=== PATIENT | male | born 1940 | race Two or more races ===

== ENCOUNTER 2017-10-05 19:36 | Inpatient (IN) | payer MEDICARE, OTHER ==
--- NOTE | 2017-10-05 20:46 | PDOC ---
History of Present Illness - General History Source: Patient Exam Limitations: No Limitations - History of Present Illness Initial Comments: 10/05/17 21:30 The patient is a 77 year old male, with a significant past medical history of HTN, Inguinal Hernia who presents to the emergency department with testicular pain. Patient is accompanied by son who reports sharp, R testicular pain, 10/10 in severity, which is exacerbated upon touch and positional changes. Patient is a visitor from and reports URI illness (cough, fever, nasal congestion) and heavy lifting with luggage. Patient denies chest pain, headache or dizziness. Patient denies fever, chills, abdominal pain, nausea, vomit, diarrhea or constipation. Patient denies dysuria , frequency, urgency or hematuria. Patient denies sick contacts or recent travel. Allergies: NKA Past surgical history:Colonoscopy <Shelli Cramer - Last Filed: 10/06/17 00:10> <Ghazal Ramirez - Last Filed: 10/06/17 06:29> - General Chief Complaint: Pain, Acute Stated Complaint: PAIN Time Seen by Provider: 10/05/17 20:15 Past History <Shelli Cramer - Last Filed: 10/06/17 00:10> - Past Medical History COPD: No HTN: Yes - Suicide/Smoking/Psychosocial Hx Smoking History: Never smoked Information on smoking cessation initiated: No <Ghazal Ramirez - Last Filed: 10/06/17 06:29> - Past Medical History Allergies/Adverse Reactions: Allergies Allergy/AdvReac Type Severity Reaction Status Date / Time No Known Allergies Allergy Verified 10/05/17 19:44 Home Medications: Ambulatory Orders Amox-Tr/K Cl [Augmentin - 875Mg Tablet] 1 tab PO BID 10/05/17 Ibuprofen 800 mg PO TID PRN 10/05/17 Tamsulosin HCl [Flomax] 0.4 mg PO DAILY 10/05/17 Review of Systems - Review of Systems Able to Perform ROS?: Yes Comments:: 10/05/17 21:30 GENERAL/CONSTITUTIONAL: No fever or chills. No weakness. HEAD, EYES, EARS, NOSE AND THROAT: No change in vision. No ear pain or discharge. No sore throat. CARDIOVASCULAR: No chest pain or shortness of breath. RESPIRATORY: No cough, wheezing, or hemoptysis. GASTROINTESTINAL: No nausea, vomiting, diarrhea or constipation. GENITOURINARY: No dysuria, frequency, or change in urination. MUSCULOSKELETAL: No joint or muscle swelling or pain. No neck or back pain. SKIN: No rash NEUROLOGIC: No headache, vertigo, loss of consciousness, or change in strength/ sensation. ENDOCRINE: No increased thirst. No abnormal weight change. HEMATOLOGIC/LYMPHATIC: No anemia, easy bleeding, or history of blood clots. ALLERGIC/IMMUNOLOGIC: No hives or skin allergy. : + R scrotal pain. <Shelli Cramer - Last Filed: 10/06/17 00:10> *Physical Exam - Vital Signs Last Vital Signs Temp Pulse Resp BP Pulse Ox 98 F 94 H 22 120/66 96 10/05/17 19:43 10/05/17 19:43 10/05/17 19:43 10/05/17 19:43 10/05/17 19:43 - Physical Exam Comments: 10/05/17 21:30 GENERAL: Awake, alert, and fully oriented, in no acute distress HEAD: No signs of trauma EYES: PERRLA, EOMI, sclera anicteric, conjunctiva clear ENT: Auricles normal inspection, hearing grossly normal, nares patent, oropharynx clear without exudates. Moist mucosa NECK: Normal ROM, supple, no lymphadenopathy, JVD, or masses LUNGS: Breath sounds equal, clear to auscultation bilaterally. No wheezes, and no crackles HEART: Regular rate and rhythm, normal S1 and S2, no murmurs, rubs or gallops ABDOMEN: +R flank pain. Soft, nontender, normoactive bowel sounds. No guarding , no rebound. No masses EXTREMITIES: Normal range of motion, no edema. No clubbing or cyanosis. No cords, erythema, or tenderness NEUROLOGICAL: Cranial nerves II through XII grossly intact. Normal speech, normal gait SKIN: Warm, Dry, normal turgor, no rashes or lesions noted. : +Swollen R scrotum and extremely tender. <Shelli Cramer - Last Filed: 10/06/17 00:10> - Vital Signs Last Vital Signs Temp Pulse Resp BP Pulse Ox 98 F 94 H 22 120/66 96 10/05/17 19:43 10/05/17 19:43 10/05/17 19:43 10/05/17 19:43 10/05/17 19:43 <RamirezGhazal - Last Filed: 10/06/17 06:29> ED Treatment Course - LABORATORY CBC & Chemistry Diagram: 10/05/17 21:45 10/05/17 21:45 <Shelli Cramer - Last Filed: 10/06/17 00:10> - LABORATORY CBC & Chemistry Diagram: 10/05/17 21:45 10/05/17 21:45 <Ghazal Ramirez - Last Filed: 10/06/17 06:29> Medical Decision Making - Medical Decision Making 10/06/17 00:10 EXAM: CT ABDOMEN AND PELVIS without contrast HISTORY: Rule out right hydronephrosis/stones COMPARISON: None. FINDINGS: Negative for right or left urinary tract stone or obstruction. Note made of a 5.8 cm left renal cyst. No bowel obstruction, free air, or free fluid. There is sigmoid diverticulosis. No diverticulitis or colitis. Normal appendix. No acute abnormalities of the liver, gallbladder, spleen, pancreas, or adrenal glands. Enlarged prostate. Bilateral L5 spondylolyses. <Shelli Cramer - Last Filed: 10/06/17 00:10> - Medical Decision Making 10/05/17 22:15 Patient Name: OLIVIA NOLEN THIS IS A PRELIMINARY REPORT FROM [facility] DATE OF SERVICE: 2017-10-05 20:51:11 IMAGES: 64 EXAM: US SCROTUM with color Doppler HISTORY: Right testicular pain. COMPARISON: None. Bilateral hydrocele, larger on the right. Testes are normal size with homogeneous echogenicity. No testicular mass seen. Increased color flow involving the enlarged right epididymis suggestive of acute epididymitis. No evidence of left acute epididymitis. Normal color to both testes without evidence of torsion. No increased color flow to the right testis to suggest orchitis. THIS DOCUMENT HAS BEEN ELECTRONICALLY SIGNED 10/05/17 22:23 Pt will be treated for STD; we are awaiting CT scan to r/o stone of the kidney vs pyelonephritis. CXR pending also. Pt returned from 2 weeks ago and he is complaining of cough; we will also get a flu culture. 10/05/17 23:[address] the CT scanner; pending. His BuN and Cr are elevated. WHen he returns we will give him IVF. 10/06/17 06:29 Pt admitted to the hospitalist <Ghazal Ramirez - Last Filed: 10/06/17 06:29> *DC/Admit/Observation/Transfer - Attestations Scribe Attestion: 10/05/17 21:30 Documentation prepared by Shelli Cramer, acting as resident medical officer for Ghazal Ramirez MD/DO. <Shelli Cramer - Last Filed: 10/06/17 00:10> - Discharge Dispostion Admit: Yes <Ghazal Ramirez - Last Filed: 10/06/17 06:29> Diagnosis at time of Disposition: Epididymitis, Pyelonephritis, Sepsis, UTI (urinary tract infection) - Discharge Dispostion Condition at time of disposition: Guarded
[2017-10-05] MEDS ORDERED: ONDANSETRON 4 MG/2 ML VIAL IVPB ONE (21:42)
[2017-10-05] MEDS ORDERED: morphine CARPU-JECT 2 MG/1 ML DISP.SYRIN IVPUSH ONE (21:42)
[2017-10-05] MEDS ORDERED: ONDANSETRON 4 MG/2 ML VIAL ONE (22:00)
[2017-10-05] MEDS ORDERED: morphine SULFATE 4 MG/ML VIAL ONE (22:00)
[2017-10-05 22:02] LABS: HEMATOCRIT 41.2 % (35.4-49); MEAN CELL VOLUME 94.2 fl (80-96); MEAN PLT VOLUME 8.7 fl (7.5-11.1); PLATELET COUNT 277 K/MM3 (134-434); RBC 4.38 M/mm3 (4.00-5.60); RDW 13.3 % (11.9-15.9); WHITE BLOOD COUNT 25.9 K/mm3 (4.0-10.0)
[2017-10-05 22:04] LABS: URINE APPEARANCE CLOUDY; URINE BILIRUBIN NEGATIVE (NEGATIVE); URINE BLOOD 3+ (NEGATIVE); URINE COLOR YELLOW; URINE GLUCOSE (UA) NEGATIVE (NEGATIVE); URINE KETONE TRACE (NEGATIVE); URINE NITRITE NEGATIVE (NEGATIVE); URINE UROBILINOGEN NEGATIVE mg/dL (0.2-1.0)
[2017-10-05 22:09] LABS: URINE PROTEIN 1+ (NEGATIVE)
[2017-10-05 22:11] LABS: EPI CELLS RARE /HPF (FEW); URINE BACTERIA MODERATE /hpf (NONE SEEN); URINE MUCUS RARE
[2017-10-05 22:14] LABS: INR 1.04 (0.82-1.09); PROTHROMBIN TIME (PATIENT) 11.8 SEC (9.98-11.88)
[2017-10-05] MEDS ORDERED: DOXYCYCLINE INJECTION 100 MG in DEXTROSE 5%-WATER - 150 ML IVPB ONE (22:16)
[2017-10-05 22:24] LABS: ALBUMIN 3.3 g/dl (3.4-5.0); ALK PHOS 100 U/L (45-117); ANION GAP 7 (8-16); BILIRUBIN,TOTAL 0.5 mg/dL (0.2-1.0); BLOOD UREA NITROGEN 18 mg/dL (7-18); CALCIUM 8.4 mg/dL (8.5-10.1); CHLORIDE 100 mmol/L (98-107); CO2 25 mmol/L (21-32); CREATININE 1.7 mg/dL (0.7-1.3); GLUCOSE,RANDOM 104 mg/dL (74-106); POTASSIUM 4.4 mmol/L (3.5-5.1); SGOT/AST 17 U/L (15-37); SGPT/ALT 19 U/L (12-78); SODIUM 132 mmol/L (136-145); TOT PROT 7.5 g/dl (6.4-8.2)
[2017-10-05 22:40] LABS: PLATELET ESTIMATE ADEQUATE
[2017-10-05] MEDS ORDERED: LIDOCAINE HCL/PF 1% SDV 5ML VIAL ONE (22:58)
[2017-10-05] MEDS ORDERED: DOXYCYCLINE HYCLATE 100 MG VIAL ONE (22:59)
[2017-10-05] MEDS ORDERED: cefTRIAXone SODIUM 1 GM VIAL ONE (22:59)
[2017-10-05] MEDS ORDERED: SODIUM CHLORIDE 0.9% 500 ML INFUS.BAG IV ONE (23:10)
--- NOTE | 2017-10-06 00:01 | HP ---
CHIEF COMPLAINT: Right Testicular Pain PCP: Unknown HISTORY OF PRESENT ILLNESS: 77 year old M with a pmh of HTN, BPH, Right inguinal hernia presenting with right testicular pain x 3 days. Patient states he had gradual onset of pain in his right testicle that worsened over the past 3 days and is now a 10/10. Pain is sharp, nonradiating, and constant. Patient endorses fevers, chills, URI sx ( nonproductive cough, rhinorrhea), dysuria, hematuria, right flank pain. Patient denies chest pain, shortness of breath, abdominal pain, urinary urgency/ frequency, or penile discharge. Patient is sexually active and recently got . He does not use protection. Patient also recently had a colonoscopy, and had 18 polyps removed, none of which were cancerous. Patient recently arrived from 2 weeks ago ER course was notable for: (1) VS- HR 94, WBC 25.9, Cr 1.7 (2) UA- 3+ blood, 555 wbc, 90 RBC, moderate bacteria (3) Scrotum us, CT abd/pelvis, CXR, and GC/chlamydia Recent Travel: 2 weeks ago PAST MEDICAL HISTORY: as per hpi PAST SURGICAL HISTORY: denies Social History: Smoking: denies Alcohol: denies Drugs: denies Family History: Allergies No Known Allergies Allergy (Verified 10/05/17 19:44) HOME MEDICATIONS: Home Medications Medication Instructions Recorded Amox-Tr/K Cl [Augmentin - 875Mg 1 tab PO BID 10/05/17 Tablet] Ibuprofen 800 mg PO TID PRN 10/05/17 Tamsulosin HCl [Flomax] 0.4 mg PO DAILY 10/05/17 REVIEW OF SYSTEMS CONSTITUTIONAL: Absent: fever, chills, diaphoresis, generalized weakness, malaise, loss of appetite, weight change HEENT: Absent: rhinorrhea, nasal congestion, throat pain, throat swelling, difficulty swallowing, mouth swelling, ear pain, eye pain, visual changes CARDIOVASCULAR: Absent: chest pain, syncope, palpitations, irregular heart rate, lightheadedness , peripheral edema RESPIRATORY: Absent: cough, shortness of breath, dyspnea with exertion, orthopnea, wheezing, stridor, hemoptysis GASTROINTESTINAL: Absent: abdominal pain, abdominal distension, nausea, vomiting, diarrhea, constipation, melena, hematochezia GENITOURINARY: Absent: dysuria, frequency, urgency, hesitancy, hematuria, flank pain, genital pain MUSCULOSKELETAL: Absent: myalgia, arthralgia, joint swelling, back pain, neck pain SKIN: Absent: rash, itching, pallor HEMATOLOGIC/IMMUNOLOGIC: Absent: easy bleeding, easy bruising, lymphadenopathy, frequent infections ENDOCRINE: Absent: unexplained weight gain, unexplained weight loss, heat intolerance, cold intolerance NEUROLOGIC: Absent: headache, focal weakness or paresthesias, dizziness, unsteady gait, seizure, mental status changes, bladder or bowel incontinence PSYCHIATRIC: Absent: anxiety, depression, suicidal or homicidal ideation, hallucinations. PHYSICAL EXAMINATION Vital Signs - 24 hr 10/05/17 19:43 Temperature 98 F Pulse Rate 94 H Respiratory 22 Rate Blood Pressure 120/66 O2 Sat by Pulse 96 Oximetry (%) GENERAL: Awake, alert, and fully oriented, in no acute distress. HEAD: Normal with no signs of trauma. EYES: Pupils equal, round and reactive to light, extraocular movements intact, sclera anicteric, conjunctiva clear. No lid lag. EARS, NOSE, THROAT: Oropharynx clear without exudates. Dry mucous membranes. NECK: Normal range of motion, supple without lymphadenopathy, JVD, or masses. LUNGS: Breath sounds equal, clear to auscultation bilaterally. No wheezes, and no crackles. No accessory muscle use. HEART: Tachycardic, normal S1 and S2 without murmur, rub or gallop. ABDOMEN: Soft, nontender, not distended, normoactive bowel sounds, no guarding, no rebound, no masses. No hepatomegaly or splenomegaly. MUSCULOSKELETAL: Normal range of motion at all joints. No bony deformities or tenderness. + mild right CVA tenderness. UPPER EXTREMITIES: 2+ pulses, warm, well-perfused. No cyanosis. No clubbing. No peripheral edema. LOWER EXTREMITIES: 2+ pulses, warm, well-perfused. No calf tenderness. No peripheral edema. NEUROLOGICAL: Cranial nerves II-XII intact. Normal speech. PSYCHIATRIC: Cooperative. Good eye contact. Appropriate mood and affect. SKIN: Warm, dry, normal turgor, no rashes or lesions noted, normal capillary refill. : Erythematous, enlarged right testicle, No improvement in pain upon raising, +tenderness to palpation, No lymphadenopathy, No lesions, No discharge, +Right inguinal hernia Laboratory Results - last 24 hr 10/05/17 10/05/17 10/05/17 21:45 21:45 21:45 WBC 25.9 H RBC 4.38 Hgb 14.0 Hct 41.2 MCV 94.2 MCH 32.0 MCHC 34.0 RDW 13.3 Plt Count 277 MPV 8.7 Total Counted 100 Neutrophils % No Result Required. Neutrophils % (Manual) 80.0 Band Neutrophils % 1.0 Lymphocytes % No Result Required. Lymphocytes % (Manual) 5.0 L Monocytes % (Manual) 13 H Eosinophils % (Manual) 1.0 Differential Comment Man diff performed Platelet Estimate Adequate Platelet Comment PT with INR 11.80 INR 1.04 Sodium Potassium Chloride Carbon Dioxide Anion Gap BUN Creatinine Creat Clearance w eGFR Random Glucose Calcium Total Bilirubin AST ALT Alkaline Phosphatase Total Protein Albumin Urine Color Yellow Urine Appearance Cloudy Urine pH 5.0 Ur Specific [place] 1.016 Urine Protein 1+ H Urine Glucose (UA) Negative Urine Ketones Trace H Urine Blood 3+ H Urine Nitrite Negative Urine Bilirubin Negative Urine Urobilinogen Negative Urine WBC (Auto) 555 Urine RBC (Auto) 90 Ur Epithelial Cells Rare Urine Bacteria Moderate Urine Mucus Rare Blood Type Antibody Screen 10/05/17 10/05/17 21:45 21:45 WBC RBC Hgb Hct MCV MCH MCHC RDW Plt Count MPV Total Counted Neutrophils % Neutrophils % (Manual) Band Neutrophils % Lymphocytes % Lymphocytes % (Manual) Monocytes % (Manual) Eosinophils % (Manual) Differential Comment Platelet Estimate Platelet Comment PT with INR INR Sodium 132 L Potassium 4.4 Chloride 100 Carbon Dioxide 25 Anion Gap 7 L BUN 18 Creatinine 1.7 H Creat Clearance w eGFR 39.49 Random Glucose 104 Calcium 8.4 L Total Bilirubin 0.5 AST 17 ALT 19 Alkaline Phosphatase 100 Total Protein 7.5 Albumin 3.3 L Urine Color Urine Appearance Urine pH Ur Specific [place] Urine Protein Urine Glucose (UA) Urine Ketones Urine Blood Urine Nitrite Urine Bilirubin Urine Urobilinogen Urine WBC (Auto) Urine RBC (Auto) Ur Epithelial Cells Urine Bacteria Urine Mucus Blood Type O POSITIVE Antibody Screen Negative ASSESSMENT/PLAN: 77 year old M with pmh of HTN, BPH, and Inguinal Hernia presenting with pain at the right testicle placed into obs for sepsis 2/2 to acute epididmyitis #Sepsis 2/2 to Acute Epididimytiis vs Pyelonephritis -Start Ceftriaxone 1 g IVPB daily -Start Doxycycline 100 mg po BID -Morphine 1 mg q4h for pain -Lactic acid pending -Urine culture pending -Chlamydia/GC pending -Scrotum u/s -- Increased color flow involving the enlarged right epididymis suggestive of acute epididymitis -CT abd pelvis- Negative (5.8 cm L renal cyst) #OBI -IVF NS @ 125 cc/hr -Urine electrolytes -Monitor cr -Avoid nephrotoxic medications -Baseline Cr unknown #HTN -Patient's medications need to be confirmed -Monitor BP #BPH -Continue flomax 0.4 mg po daily #Left renal cyst on U/s -F/u with urology #FEN/GI -IVF NS @ 125 cc/hr -HypoNa- monitor -Sodium Controlled diet #PPx -Heparin 5000 units q8h -No GI ppx indicated Case discussed with medical team Visit type - Emergency Visit Emergency Visit: Yes ED Registration Date: 10/06/17 Care time: The patient presented to the Emergency Department on the above date and was hospitalized for further evaluation of their emergent condition. - New Patient This patient is new to me today: Yes Date on this admission: 10/06/17 - Critical Care Critical Care patient: No
[2017-10-06] MEDS ORDERED: CEFTRIAXONE 1 GM in DEXTROSE 5%-WATER - 50 ML IVPB SCH (00:15)
[2017-10-06] MEDS ORDERED: SODIUM CHLORIDE 1,000 ML IV SCH ×2 (00:15→00:45)
--- NOTE | 2017-10-06 00:16 | PN ---
Teaching Attending Note Name of Resident: Juan Bhat ATTENDING PHYSICIAN STATEMENT I saw and evaluated the patient. I reviewed the resident's note and discussed the case with the resident. I agree with the resident's findings and plan as documented. SUBJECTIVE: 77 yo M with pmhx. of BPH, HTN, inguinal hernia who presents with testicular pain. Pain is located on R. Testicle and is worsened with palpation. No fevers , chills, shortness of breath. No chest pain or pressure. No ulcers or discharge from penis. States he recently got and has been having unprotected sex. OBJECTIVE: Physical: VS: Vital Signs Period Temp Pulse Resp BP Sys/Truong Pulse Ox Last 24 Hr 98 F 94 22 120/66 96 GEN: NAD, Resting in Bed, able to speak full sentences HEENT: NCAT, PERRL, Throat without erythema or exudates CARD: RRR S1, S2 RESP: CTAB ABD: BSx4, NTD to palpation EXT:- C/C/E : Erythmatous rigth testicle, TTP, no sores noted in or around Penis, No lymphadenopathy CBCD WBC 25.9 K/mm3 (4.0-10.0) H 10/05/17 21:45 RBC 4.38 M/mm3 (4.00-5.60) 10/05/17 21:45 Hgb 14.0 GM/dL (11.7-16.9) 10/05/17 21:45 Hct 41.2 % (35.4-49) 10/05/17 21:45 MCV 94.2 fl (80-96) 10/05/17 21:45 MCHC 34.0 g/dl (32.0-35.9) 10/05/17 21:45 RDW 13.3 % (11.9-15.9) 10/05/17 21:45 Plt Count 277 K/MM3 (134-434) 10/05/17 21:45 MPV 8.7 fl (7.5-11.1) 10/05/17 21:45 CMP Sodium 132 mmol/L (136-145) L 10/05/17 21:45 Potassium 4.4 mmol/L (3.5-5.1) 10/05/17 21:45 Chloride 100 mmol/L (98-107) 10/05/17 21:45 Carbon Dioxide 25 mmol/L (21-32) 10/05/17 21:45 Anion Gap 7 (8-16) L 10/05/17 21:45 BUN 18 mg/dL (7-18) 10/05/17 21:45 Creatinine 1.7 mg/dL (0.7-1.3) H 10/05/17 21:45 Creat Clearance w eGFR 39.49 (>60) 10/05/17 21:45 Random Glucose 104 mg/dL (74-106) 10/05/17 21:45 Calcium 8.4 mg/dL (8.5-10.1) L 10/05/17 21:45 Total Bilirubin 0.5 mg/dL (0.2-1.0) 10/05/17 21:45 AST 17 U/L (15-37) 10/05/17 21:45 ALT 19 U/L (12-78) 10/05/17 21:45 Alkaline Phosphatase 100 U/L (45-117) 10/05/17 21:45 Total Protein 7.5 g/dl (6.4-8.2) 10/05/17 21:45 Albumin 3.3 g/dl (3.4-5.0) L 10/05/17 21:45 Urine Test Results Urine Color Yellow 10/05/17 21:45 Urine Appearance Cloudy 10/05/17 21:45 Urine pH 5.0 (5.0-8.0) 10/05/17 21:45 Ur Specific [place] 1.016 (1.001-1.035) 10/05/17 21:45 Urine Protein 1+ (NEGATIVE) H 10/05/17 21:45 Urine Glucose (UA) Negative (NEGATIVE) 10/05/17 21:45 Urine Ketones Trace (NEGATIVE) H 10/05/17 21:45 Urine Blood 3+ (NEGATIVE) H 10/05/17 21:45 Urine Nitrite Negative (NEGATIVE) 10/05/17 21:45 Urine Bilirubin Negative (NEGATIVE) 10/05/17 21:45 Ur Epithelial Cells Rare /HPF (FEW) 10/05/17 21:45 Urine Bacteria Moderate /hpf (NONE SEEN) 10/05/17 21:45 Urine Mucus Rare 10/05/17 21:45 Scotal US: Bilateral Hydrocele, larger on R, No Testicular mass, Increassed flow , to R. Epidiymis suggest acute Epididymitis, No evidence of torsion CT ABD: Negative for stone or obstruction, 5.8 Cm L. Renal Cyst, enlarged prostate, Bilateral L5 Sponololyses ASSESSMENT AND PLAN: 77 yo M with pmhx. of BPH, HTN, inguinal hernia who presents with testicular pain, found to be septic and to have acute Epididymitis 1.)Acute Epididymitis - Ceftriaxone & Doxy - Lab Sent for Chlamydia/Gonorrhea 2.) Sepsis - Due to UTI/Epididymitis - Gutierrez Cx. - Repeat LA - IVF - C/W Abx 3.) L. Renal Cyst - FU with Urology 4.) Acute Renal Failure - U Lytes - IVF - Avoid Nephrotoxins 5.) BPH - C/W Flomax 6.) Bilateral Hydrocele - Pain control - If Worsening Urology Consult 7.) Dvt Ppx - Low Risk - SCDS F; IVF E: Hyponatremia Mild- Monitor N: Regular Diet Place in Obs
[2017-10-06] MEDS ORDERED: CEFTRIAXONE 1 G/50 ML PREMIX 50 ML IVPB SCH (01:00)
[2017-10-06] MEDS: morphine SULFATE 4 MG/ML VIAL IVPUSH PRN ×2 (03:10→08:25)
[2017-10-06 04:15] VITALS: BMI 23.1
[2017-10-06] MEDS: HEPARIN NA (PORCINE) 5,000 UNITS/ML 1ML VIAL SQ SCH ×3 (06:15→21:07)
[2017-10-06 07:13] LABS: BASO % 0.2 % (0-2.0); EOS % 0.3 % (0-4.5); HEMATOCRIT 36.8 % (35.4-49); HEMOGLOBIN 12.5 GM/dL (11.7-16.9); LYMPH % 6.9 % (8-40); MCH 31.6 pg (25.7-33.7); MCHC 33.8 g/dl (32.0-35.9); MEAN CELL VOLUME 93.5 fl (80-96); MEAN PLT VOLUME 8.7 fl (7.5-11.1); MONO % 10.3 % (3.8-10.2); NEUT % 82.3 % (42.8-82.8); PLATELET COUNT 249 K/MM3 (134-434); RBC 3.94 M/mm3 (4.00-5.60); RDW 13.3 % (11.9-15.9); WHITE BLOOD COUNT 24.2 K/mm3 (4.0-10.0)
[2017-10-06 07:48] LABS: CHLORIDE 104 mmol/L (98-107); POTASSIUM 3.8 mmol/L (3.5-5.1); SODIUM 135 mmol/L (136-145)
[2017-10-06 07:55] LABS: ANION GAP 9 (8-16); BLOOD UREA NITROGEN 17 mg/dL (7-18); CALCIUM 7.3 mg/dL (8.5-10.1); CO2 22 mmol/L (21-32); CREATININE 1.5 mg/dL (0.7-1.3); GLUCOSE,RANDOM 92 mg/dL (74-106)
[2017-10-06] MEDS: TAMSULOSIN HCL 0.4 MG CAP.ER.24H (FP) PO SCH (08:25)
[2017-10-06] MEDS ORDERED: SODIUM CHLORIDE 500 ML IV STA ×2 (09:01→11:06)
[2017-10-06] MEDS: CEFTRIAXONE 1 G/50 ML PREMIX 50 ML IVPB SCH (09:26)
[2017-10-06] MEDS: DOXYCYCLINE HYCLATE 100 MG CAPSULE PO SCH ×2 (09:26→18:17)
[2017-10-06] MEDS ORDERED: morphine SULFATE 4 MG/ML VIAL IVPUSH STA (10:47)
[2017-10-06 10:58] LABS: URINE LEUK ESTERASE 3+ (NEGATIVE)
[2017-10-06] MEDS: SODIUM CHLORIDE 1,000 ML IV SCH (11:08)
--- NOTE | 2017-10-06 11:24 | PN ---
Progress Note (short form) - Note Progress Note: ID consult dictated imp/reccd 77 year old man [place] 3 month stay on 09/22 reports fevers, chills, cold symptoms and testicular pain stayed in bed went on 10/04 to see his PMD given augmentin, motrin and flomax had continued severe pain and came to ED now is not able to urinate reports fevers have resolved recently got in -sexually active is there reports one prior episode of testicular swelling many years ago right epididymo-orchitis- UTI possible STD ADRIANA GC/Chlamydia also enteric GNR- ecoli? rocephin/doxy- would continue he agrees to HIV testing- will order possible urinary retention- bladder scan, wood if needed obi- ?retention urology consult d/w hospitalist Problem List - Problems (1) Epididymitis Code(s): N45.1 - EPIDIDYMITIS (2) UTI (urinary tract infection) Code(s): N39.0 - URINARY TRACT INFECTION, SITE NOT SPECIFIED (3) OBI (acute kidney injury) Code(s): N17.9 - ACUTE KIDNEY FAILURE, UNSPECIFIED
--- NOTE | 2017-10-06 12:22 | CONS ---
DATE OF CONSULTATION: REQUESTING PHYSICIAN: Hospitalist service. HISTORY: This is a 77-year-old man recently he has been in the [place] for the last 3 months. He got while he was there. Returned on the September with fevers, chills. He reports cold, URI symptoms with cough and congestion as well as testicular pain. These symptoms all worsened especially the pain. He went to see his physician on the 04 of October and was prescribed Augmentin and Motrin as well as Flomax. His testicular pain worsened, and he came to the emergency room yesterday. He reports his fevers have resolved. His past medical history is notable for the fact that he has a history of BPH in the past and a right inguinal hernia. He has been sexually active with a new partner, and there is no condom use. In the emergency room, his workup included a CAT scan of the abdomen and pelvis that showed a large left renal cyst and enlarged prostate. He had a sonogram of his scrotum that revealed right epididymo-orchitis. ALLERGIES: He has no known allergies. MEDICATIONS: As a result include Flomax, ibuprofen, and Augmentin, which he started on the . PAST MEDICAL HISTORY: Notable for BPH, hypertension, and the right inguinal hernia. He denies a history of diabetes. He has had a colonoscopy in the past at [facility] a year ago after which he reports he had a diffuse rash from which he still has scars on his leg and back. FAMILY HISTORY: Not available. SOCIAL HISTORY: He reports he actually lives here in [place], and he goes back and forth to the [facility]. He denies any history of cigarette or substance use. REVIEW OF SYSTEMS: There is no nausea, vomiting, or diarrhea. Currently he states he cannot urinate, and he continues to have severe testicular pain. He denies fevers, which he states have resolved. He notes he still has cough and nasal congestion. PHYSICAL EXAMINATION: Vital Signs: Temperature 98.3. He has had no fever since admission. Pulse 69, blood pressure 125/54, respiratory rate 18. He is saturating 97% on room air. HEENT: He is normocephalic. His eyes are anicteric. He has no thrush or pharyngitis. Neck: He has no adenopathy. Lungs: Clear to auscultation. Heart: Regular rate and rhythm. Abdomen: Soft. He has suprapubic discomfort on exam. Question of whether he has a palpable bladder. Extremities: Without edema. He has swelling of his right testicle, which is exquisitely tender to touch. Skin: He has these scars on the backs of his legs extending up to his buttocks and one or two on his back, which he reports with this rash he had last year. LABORATORIES: Notable for a white count 24.2, hemoglobin 12.5, platelets 249, INR 1. BUN 18, creatinine 1.7 on admission. Repeat BUN 17 and creatinine 1.5. Urinalysis with 3+ leukocyte esterase, 555 white cells. IMAGING: As previously stated. In summary, this is a 77-year-old man with right epididymo-orchitis. He has evidence of UTI as well, possible STD. Given that he is sexually active, agree with screening for gonorrhea and Chlamydia. He does not give a history of prior urinary tract infection. Last episode of testicular swelling was many years ago, so I would continue ceftriaxone and doxycycline. We should cover him both for STDs as well as empiric gram-negative rods, which would be the other possible pathogens in this man. He agrees to HIV testing, which I will order. Concern for possible urinary retention. We would obtain a bladder scan and a if needed. He has evidence of acute kidney injury, which all may be secondary to urinary retention. Urology consult has been requested as well. The case was discussed with the urologist. MIGUEL MORALES M.D. [id number]
--- NOTE | 2017-10-06 12:50 | EKG ---
Test Reason : Blood Pressure : / mmHG Vent. Rate : 072 BPM Atrial Rate : 072 BPM P-R Int : 140 ms QRS Dur : 140 ms QT Int : 418 ms P-R-T Axes : 048 -25 030 degrees QTc Int : 457 ms NORMAL SINUS RHYTHM RIGHT BUNDLE BRANCH BLOCK MINIMAL VOLTAGE CRITERIA FOR LVH, MAY BE NORMAL VARIANT ABNORMAL ECG NO PREVIOUS ECGS AVAILABLE Confirmed by YOLANDA GRANADOS MD ([id number]) on 10/06/2017 12:49:24 PM Referred By: Confirmed By:YOLANDA GRANADOS MD
[2017-10-06] MEDS ORDERED: FLU VACCINE QUAD 60 MCG/0.5 ML (MDV 17-18) IM ONE (16:15)
[2017-10-06] MEDS ORDERED: PNEUMOC 13-VAL CONJ-DIP CRM/PF 0.5 ML DISP.SYRIN IM ONE (16:15)
[2017-10-06 17:11] LABS: URINE APPEARANCE SLCLOUDY; URINE BILIRUBIN NEGATIVE (NEGATIVE); URINE BLOOD 2+ (NEGATIVE); URINE COLOR LTYELLOW; URINE GLUCOSE (UA) NEGATIVE (NEGATIVE); URINE KETONE NEGATIVE (NEGATIVE); URINE NITRITE NEGATIVE (NEGATIVE); URINE PROTEIN NEGATIVE (NEGATIVE); URINE UROBILINOGEN NEGATIVE mg/dL (0.2-1.0)
[2017-10-06] MEDS: ACETAMINOPHEN 325 MG TABLET (FP) PO PRN (17:20)
--- NOTE | 2017-10-06 17:22 | CON.GU ---
Consult - History of Present Illness History of Present Illness: 77 yo male admitted with rt testicle pain, and difficulty voiding. Scotal sono shows rt epididymorchitis, no abscess, CT shows BPH. Wood inserted because of inabiltity to void-unclear of PVR - Alcohol/Substance Use Hx Alcohol Use: No - Smoking History Smoking history: Never smoked Have you smoked in the past 12 months: No Home Medications - Allergies Allergies/Adverse Reactions: Allergies Allergy/AdvReac Type Severity Reaction Status Date / Time No Known Allergies Allergy Verified 10/05/17 19:44 - Home Medications Home Medications: Ambulatory Orders Amox-Tr/K Cl [Augmentin - 875Mg Tablet] 1 tab PO BID 10/05/17 Ibuprofen 800 mg PO TID PRN 10/05/17 Tamsulosin HCl [Flomax] 0.4 mg PO DAILY 10/05/17 Candesartan Cilexetil mg PO DAILY 10/06/17 Physical Exam- Vital Signs: Vital Signs Temperature 99.6 F 10/06/17 14:38 Pulse Rate 68 10/06/17 14:38 Respiratory Rate 18 10/06/17 14:38 Blood Pressure 136/66 10/06/17 14:38 O2 Sat by Pulse Oximetry (%) 96 10/06/17 09:00 Testicles: Yes: Tenderness (rt) Labs: CBC, BMP 10/06/17 05:35 10/06/17 05:35 Imaging - Results Cat Scan: Report Reviewed Ultrasound: Report Reviewed Assessment/Plan Epididymorchitis Abx as per ID, would keep wood in place until WBC normalizes. Start Flomax
--- NOTE | 2017-10-06 17:41 | PN ---
Physical Exam: SUBJECTIVE: Patient seen and examined at bedside. Complains of severe testicular pain. 24 hour events 1. Fever spike 101.3 2. Urinary retention; wood placed with 600cc initial output 3. Repeat blood and urine cultures OBJECTIVE: Vital Signs Period Temp Pulse Resp BP Sys/Truong Pulse Ox Last 24 Hr 97.9 F-99.6 F 63-94 18-22 104-141/37-66 96-98 GENERAL: The patient is awake, alert, and fully oriented, in moderate distress secondary to pain. LUNGS: Breath sounds equal, clear to auscultation bilaterally, no wheezes, no crackles, no accessory muscle use HEART: Regular rate and rhythm, S1, S2 without murmur, rub or gallop. ABDOMEN: Mildly distended, mild tenderness at the level of the umbilicus : right testicle red, hot, swollen, exquisitely tender EXTREMITIES: 2+ pulses, warm, well-perfused, no edema. NEUROLOGICAL: Cranial nerves II through XII grossly intact. Normal speech, gait not observed. SKIN: Healed excoritions both legs Laboratory Results - last 24 hr 10/05/17 10/05/17 10/05/17 21:45 21:45 21:45 WBC 25.9 H RBC 4.38 Hgb 14.0 Hct 41.2 MCV 94.2 MCH 32.0 MCHC 34.0 RDW 13.3 Plt Count 277 MPV 8.7 Total Counted 100 Neutrophils % No Result Required. Neutrophils % (Manual) 80.0 Band Neutrophils % 1.0 Lymphocytes % No Result Required. Lymphocytes % (Manual) 5.0 L Monocytes % Monocytes % (Manual) 13 H Eosinophils % Eosinophils % (Manual) 1.0 Basophils % Differential Comment Man diff performed Platelet Estimate Adequate Platelet Comment PT with INR 11.80 INR 1.04 Sodium Potassium Chloride Carbon Dioxide Anion Gap BUN Creatinine Creat Clearance w eGFR Random Glucose Lactic Acid Calcium Total Bilirubin AST ALT Alkaline Phosphatase Total Protein Albumin Urine Color Yellow Urine Appearance Cloudy Urine pH 5.0 Ur Specific Hammond 1.016 Urine Protein 1+ H Urine Glucose (UA) Negative Urine Ketones Trace H Urine Blood 3+ H Urine Nitrite Negative Urine Bilirubin Negative Urine Urobilinogen Negative Ur Leukocyte Esterase 3+ H Urine WBC (Auto) 555 Urine RBC (Auto) 90 Ur Epithelial Cells Rare Urine Bacteria Moderate Urine Mucus Rare Blood Type Antibody Screen 10/05/17 10/05/1717 21:45 21:45 00:35 WBC RBC Hgb Hct MCV MCH MCHC RDW Plt Count MPV Total Counted Neutrophils % Neutrophils % (Manual) Band Neutrophils % Lymphocytes % Lymphocytes % (Manual) Monocytes % Monocytes % (Manual) Eosinophils % Eosinophils % (Manual) Basophils % Differential Comment Platelet Estimate Platelet Comment PT with INR INR Sodium 132 L Potassium 4.4 Chloride 100 Carbon Dioxide 25 Anion Gap 7 L BUN 18 Creatinine 1.7 H Creat Clearance w eGFR 39.49 Random Glucose 104 Lactic Acid 1.2 Calcium 8.4 L Total Bilirubin 0.5 AST 17 ALT 19 Alkaline Phosphatase 100 Total Protein 7.5 Albumin 3.3 L Urine Color Urine Appearance Urine pH Ur Specific Hammond Urine Protein Urine Glucose (UA) Urine Ketones Urine Blood Urine Nitrite Urine Bilirubin Urine Urobilinogen Ur Leukocyte Esterase Urine WBC (Auto) Urine RBC (Auto) Ur Epithelial Cells Urine Bacteria Urine Mucus Blood Type O POSITIVE Antibody Screen Negative 10/06/17 10/06/17 05:35 05:35 WBC 24.2 H RBC 3.94 L Hgb 12.5 D Hct 36.8 MCV 93.5 MCH 31.6 MCHC 33.8 RDW 13.3 Plt Count 249 MPV 8.7 Total Counted Neutrophils % 82.3 Neutrophils % (Manual) Band Neutrophils % Lymphocytes % 6.9 L Lymphocytes % (Manual) Monocytes % 10.3 H Monocytes % (Manual) Eosinophils % 0.3 Eosinophils % (Manual) Basophils % 0.2 Differential Comment Platelet Estimate Platelet Comment PT with INR INR Sodium 135 L Potassium 3.8 Chloride 104 Carbon Dioxide 22 Anion Gap 9 BUN 17 Creatinine 1.5 H Creat Clearance w eGFR Random Glucose 92 Lactic Acid Calcium 7.3 L Total Bilirubin AST ALT Alkaline Phosphatase Total Protein Albumin Urine Color Urine Appearance Urine pH Ur Specific Hammond Urine Protein Urine Glucose (UA) Urine Ketones Urine Blood Urine Nitrite Urine Bilirubin Urine Urobilinogen Ur Leukocyte Esterase Urine WBC (Auto) Urine RBC (Auto) Ur Epithelial Cells Urine Bacteria Urine Mucus Blood Type Antibody Screen Active Medications Generic Name Dose Route Start Last Admin Trade Name Freq PRN Reason Stop Dose Admin Acetaminophen 650 mg 10/06/17 15:37 Tylenol - PO Q6H PRN FEVER OR PAIN Doxycycline Hyclate 100 mg 10/06/17 10:00 10/06/17 09:26 Vibramycin - PO 100 mg BID@1000,1800 KADI Administration Heparin Sodium (Porcine) 5,000 unit 10/06/17 06:00 10/06/17 14:30 Heparin - SQ 5,000 unit TID KADI Administration CEFTRIAXONE 1 G/50 ML PREMIX 50 mls @ 100 mls/hr 10/06/17 10:00 10/06/17 09: 26 Ceftriaxone 1 Gm-D5w Bag IVPB 100 mls/hr DAILY KADI Administration Sodium Chloride 1,000 mls @ 83 mls/hr 10/06/17 11:00 10/06/17 11:08 Normal Saline - IV 83 mls/hr ASDIR KADI Administration Tamsulosin HCl 0.4 mg 10/06/17 08:30 10/06/17 08:25 Flomax - PO 0.4 mg DAILY@0830 KADI Administration ASSESSMENT/PLAN: 77 year-old male with PMH significant for HTN, BPH, and right inguinal hernia, admitted for right epdidymo-orchitis. Sepsis secondary to right epididymo-orchitis and UTI --fever 101.3, WBC 24.2k, pyuria; lactic acid pending --continue ceftriaxone and doxycycline --fluid bolused NS 500mL x 2 today, continuing IV fluids @ 83mL/hr --blood and urine cultures collected and sent --morphine PRN for pain --ID following BPH OBI likely secondary to urinary retention --Cr 1.7 on admission, today 1.5; baseline unknown; patient reported little to no urine output overnight; wood placed, put out 600cc's --urology consult pending --continue flomax --urine studies pending r/o STD --C&G cultures pending --HIV test FEN Fluids: NS @ 83mL/hr Electrolytes: replete as indicated Nutrition: low sodium DVT prophylaxis: subq heparin Visit type - Emergency Visit Emergency Visit: Yes ED Registration Date: 10/06/17 Care time: The patient presented to the Emergency Department on the above date and was hospitalized for further evaluation of their emergent condition. - New Patient This patient is new to me today: Yes Date on this admission: 11/07/17 - Critical Care Critical Care patient: No
[2017-10-06 20:47] LABS: EPI CELLS RARE /HPF (FEW); URINE BACTERIA RARE /hpf (NONE SEEN); URINE MUCUS RARE
[2017-10-06] MEDS ORDERED: morphine SULFATE 4 MG/ML VIAL IVPUSH ONE (22:06)
[2017-10-06 22:42] LABS: URINE LEUK ESTERASE 3+ (NEGATIVE)
[2017-10-07] MEDS: ACETAMINOPHEN 325 MG TABLET (FP) PO PRN ×2 (01:46→17:34)
[2017-10-07] MEDS: SODIUM CHLORIDE 1,000 ML IV SCH ×2 (02:22→11:00)
[2017-10-07] MEDS: HEPARIN NA (PORCINE) 5,000 UNITS/ML 1ML VIAL SQ SCH ×3 (06:22→21:54)
[2017-10-07 07:38] LABS: BASO % 0.8 % (0-2.0); EOS % 1.2 % (0-4.5); HEMATOCRIT 36.3 % (35.4-49); LYMPH % 8.9 % (8-40); MCH 31.3 pg (25.7-33.7); MCHC 33.2 g/dl (32.0-35.9); MEAN CELL VOLUME 94.3 fl (80-96); MONO % 10.5 % (3.8-10.2); NEUT % 78.6 % (42.8-82.8); PLATELET COUNT 259 K/MM3 (134-434); RBC 3.85 M/mm3 (4.00-5.60); RDW 13.2 % (11.9-15.9); WHITE BLOOD COUNT 24.6 K/mm3 (4.0-10.0)
[2017-10-07 08:06] LABS: CHLORIDE 107 mmol/L (98-107); SODIUM 140 mmol/L (136-145)
[2017-10-07 08:15] LABS: ALBUMIN 2.6 g/dl (3.4-5.0); ALK PHOS 78 U/L (45-117); ANION GAP 8 (8-16); BILIRUBIN,TOTAL 0.3 mg/dL (0.2-1.0); BLOOD UREA NITROGEN 12 mg/dL (7-18); CO2 25 mmol/L (21-32); CREATININE 1.3 mg/dL (0.7-1.3); GLUCOSE,RANDOM 84 mg/dL (74-106); MAGNESIUM 2.1 mg/dL (1.8-2.4); SGOT/AST 16 U/L (15-37); SGPT/ALT 17 U/L (12-78); TOT PROT 5.9 g/dl (6.4-8.2)
[2017-10-07] MEDS: DOXYCYCLINE HYCLATE 100 MG CAPSULE PO SCH ×2 (10:59→17:34)
[2017-10-07] MEDS: CEFTRIAXONE 1 G/50 ML PREMIX 50 ML IVPB SCH (10:59)
[2017-10-07] MEDS: TAMSULOSIN HCL 0.4 MG CAP.ER.24H (FP) PO SCH (10:59)
[2017-10-07] MEDS ORDERED: oxyCODONE HCL 5 MG TABLET PO ONE (12:00)
[2017-10-07] MEDS ORDERED: ACETAMINOPHEN 325 MG TABLET (FP) PO ONE (12:00)
[2017-10-07] MEDS ORDERED: FLU VACCINE QUAD 60 MCG/0.5 ML (MDV 17-18) IM ONE (14:00)
[2017-10-07] MEDS ORDERED: PNEUMOC 13-VAL CONJ-DIP CRM/PF 0.5 ML DISP.SYRIN IM ONE (14:00)
--- NOTE | 2017-10-07 16:58 | PN ---
Progress Note (short form) - Note Progress Note: still with texticular pain now with wood Vital Signs Period Temp Pulse Resp BP Sys/Truong Pulse Ox Last 24 Hr 98.4 F-101.9 F 59-74 18-20 122-147/44-69 97-97 cor-rrr lungs clear abd soft,nt testicular swelling unchanged ext no edema +wood CBC, BMP 10/07/17 06:00 10/07/17 06:00 Microbiology 10/05/17 21:45 Urine - Urine Clean Catch Urine Culture - Preliminary Lactose Fermenting Neg Bacilli 10/05/17 22:45 Blood - Peripheral Venous Blood Culture - Preliminary NO GROWTH OBTAINED AFTER 24 HOURS, INCUBATION TO CONTINUE FOR 4 DAYS. 10/05/17 22:45 Blood - Peripheral Venous Blood Culture - Preliminary NO GROWTH OBTAINED AFTER 24 HOURS, INCUBATION TO CONTINUE FOR 4 DAYS. 10/06/17 00:35 Nasopharyngeal Swab Influenza Types A,B Antigen (TAI) - Final 10/06/17 00:35 Nasopharyngeal Swab - Final hiv negative a/p right epididymo-orchitis- UTI possible STD ADRIANA GC/Chlamydia also enteric GNR- ecoli? fevers, no improvement in wbc will switch to ertapenem-?resistant gnr f/u cultures in am continue po doxycycline Problem List - Problems (1) Epididymitis Code(s): N45.1 - EPIDIDYMITIS (2) UTI (urinary tract infection) Code(s): N39.0 - URINARY TRACT INFECTION, SITE NOT SPECIFIED (3) OBI (acute kidney injury) Code(s): N17.9 - ACUTE KIDNEY FAILURE, UNSPECIFIED
[2017-10-07] MEDS: oxyCODONE HCL 5 MG TABLET PO PRN (17:44)
[2017-10-07] MEDS: ERTAPENEM SODIUM 1 GM in SODIUM CHLORIDE 50 ML IVPB SCH (17:46)
--- NOTE | 2017-10-07 18:37 | PN ---
Teaching Attending Note Name of Resident: Lisbeth Shen ATTENDING PHYSICIAN STATEMENT I saw and evaluated the patient. I reviewed the resident's note and discussed the case with the resident. I agree with the resident's findings and plan as documented. SUBJECTIVE: cont to have pain in R testicle. no abd pain , no fever OBJECTIVE: NAD CV: RRR Lungs: CTAB ABd: soft, NT, ND , NL BS . :Nl hair distribution, R hemiscrotum with erythematous skin, R testicle and epididymis are enlarged and tender. Nl L hemiscrotum, Nl Penis. ASSESSMENT AND PLAN: 77 y/o man with h/o HTN and BPH , who presented with scrotal pain and fever and was found to have R epidimyorchitis 1- Sepsis due to epididymoorchitis . no decline in WBC, U cx with Lactose fermenting GNR - ERtapenem empirically today pending ID of bacteria - if leukocytosis does not improve, will need repeat US to r/o abscess - follow blood cx - IVF - pain control 2- Urinary retentino : - cont wood - cont flomax 3- DVT px : heparin
--- NOTE | 2017-10-07 21:01 | PN ---
Physical Exam: SUBJECTIVE: Patient seen and examined. Pt continues to c/o Right testicular pain. Pt denies chest pain, abdominal pain, sob, fever, chills. No events overnight. OBJECTIVE: Vital Signs Period Temp Pulse Resp BP Sys/Truong Pulse Ox Last 24 Hr 97.8 F-99.7 F 59-67 18-20 122-147/44-69 97-97 GENERAL: The patient is awake, alert, and fully oriented, in no acute distress. HEAD: Normal with no signs of trauma. LUNGS: Breath sounds equal, clear to auscultation bilaterally, no wheezes, no crackles, no accessory muscle use. HEART: Regular rate and rhythm, S1, S2 without murmur, rub or gallop. ABDOMEN: Soft, nontender, nondistended, normoactive bowel sounds. EXTREMITIES: 2+ pulses, warm, well-perfused, no edema. : Right hemiscrotum with erythema. Right testicle and epididymis are enlarged and tender to palpation. PSYCH: Normal mood, normal affect. SKIN: Warm, dry, normal turgor, no rashes or lesions noted Laboratory Results - last 24 hr 10/06/17 10/06/17 10/07/17 16:30 16:30 06:00 WBC RBC Hgb Hct MCV MCH MCHC RDW Plt Count MPV Neutrophils % Lymphocytes % Monocytes % Eosinophils % Basophils % Sodium Potassium Chloride Carbon Dioxide Anion Gap BUN Creatinine Creat Clearance w eGFR Random Glucose Calcium Magnesium Total Bilirubin AST ALT Alkaline Phosphatase Total Protein Albumin Ur Leukocyte Esterase 3+ H Urine WBC (Auto) 142 Urine RBC (Auto) 7 Ur Epithelial Cells Rare Urine Bacteria Rare Urine Mucus Rare Ur Random Sodium 69 Ur Random Potassium 33.1 Ur Random Chloride 86 HIV 1&2 Antibody Screen Negative HIV P24 Antigen Negative 10/07/17 10/07/17 06:00 06:00 WBC 24.6 H RBC 3.85 L Hgb 12.0 Hct 36.3 MCV 94.3 MCH 31.3 MCHC 33.2 RDW 13.2 Plt Count 259 MPV 9.0 Neutrophils % 78.6 Lymphocytes % 8.9 D Monocytes % 10.5 H Eosinophils % 1.2 D Basophils % 0.8 D Sodium 140 Potassium 4.0 Chloride 107 Carbon Dioxide 25 Anion Gap 8 BUN 12 D Creatinine 1.3 Creat Clearance w eGFR 53.82 Random Glucose 84 Calcium 8.0 L Magnesium 2.1 Total Bilirubin 0.3 D AST 16 ALT 17 Alkaline Phosphatase 78 D Total Protein 5.9 L D Albumin 2.6 L D Ur Leukocyte Esterase Urine WBC (Auto) Urine RBC (Auto) Ur Epithelial Cells Urine Bacteria Urine Mucus Ur Random Sodium Ur Random Potassium Ur Random Chloride HIV 1&2 Antibody Screen HIV P24 Antigen Active Medications Generic Name Dose Route Start Last Admin Trade Name Freq PRN Reason Stop Dose Admin Acetaminophen 650 mg 10/06/17 15:37 10/07/17 17:34 Tylenol - PO 650 mg Q6H PRN Administration FEVER OR PAIN Doxycycline Hyclate 100 mg 10/06/17 10:00 10/07/17 17:34 Vibramycin - PO 100 mg BID@1000,1800 [facility] Administration Heparin Sodium (Porcine) 5,000 unit 10/06/17 06:00 10/07/17 14:34 Heparin - SQ 5,000 unit TID KADI Administration Sodium Chloride 1,000 mls @ 83 mls/hr 10/06/17 11:00 10/07/17 11:00 Normal Saline - IV Not Given ASDIR [facility] Ertapenem 1 gm/ Sodium 50 mls @ 100 mls/hr 10/07/17 17:00 10/07/17 17:46 Chloride IVPB 100 mls/hr DAILY [facility] Administration Protocol Oxycodone HCl 5 mg 10/07/17 17:30 10/07/17 17:44 Roxicodone - PO 5 mg Q6H PRN Administration PAIN Tamsulosin HCl 0.4 mg 10/06/17 08:30 10/07/17 10:59 Flomax - PO 0.4 mg DAILY@0830 [facility] Administration ASSESSMENT/PLAN: 77yo M with PMH of htn and BPH, presenting with scrotal pain and fever, found to have R epididymo-orchitis. # sepsis 2/2 epididymoorchitis - Day 3 of IV Doxycycline - Day 1 of IV Ertapenem - switched to this antibiotic for ?resistant GNR - if leukocytosis does not improve -> repeat US to r/o abscess - blood culture (-) 24 hrs - IVFs - pain management with Oxycodone prn and Tylenol prn # urinary retention - continue wood - continue Flomax # FEN - Fluids: NS @ 83 ml/hr - Electrolytes: wnl, continue to monitor - Nutrition: low sodium diet # DVT prophylaxis - Heparin TID Visit type - Emergency Visit Emergency Visit: Yes ED Registration Date: 10/06/17 Care time: The patient presented to the Emergency Department on the above date and was hospitalized for further evaluation of their emergent condition. - New Patient This patient is new to me today: Yes Date on this admission: 10/07/17 - Critical Care Critical Care patient: No
[2017-10-08] MEDS: ACETAMINOPHEN 325 MG TABLET (FP) PO PRN
[2017-10-08] MEDS: HEPARIN NA (PORCINE) 5,000 UNITS/ML 1ML VIAL SQ SCH ×3 (05:50→21:54)
[2017-10-08 07:33] LABS: HEMATOCRIT 34.3 % (35.4-49); HEMOGLOBIN 11.5 GM/dL (11.7-16.9); MCH 31.5 pg (25.7-33.7); MCHC 33.5 g/dl (32.0-35.9); MEAN PLT VOLUME 8.9 fl (7.5-11.1); PLATELET COUNT 274 K/MM3 (134-434); RBC 3.65 M/mm3 (4.00-5.60); RDW 13.4 % (11.9-15.9); WHITE BLOOD COUNT 17.3 K/mm3 (4.0-10.0)
--- NOTE | 2017-10-08 08:55 | PN ---
Teaching Attending Note Name of Resident: Lisbeth Shen ATTENDING PHYSICIAN STATEMENT I saw and evaluated the patient. I reviewed the resident's note and discussed the case with the resident. I agree with the resident's findings and plan as documented. SUBJECTIVE: Patient is lying in bed with no acute distress, no shortness of breath. OBJECTIVE: Vital Signs Temperature 98 F 10/08/17 06:00 Pulse Rate 58 L 10/08/17 06:00 Respiratory Rate 18 10/08/17 06:00 Blood Pressure 140/65 10/08/17 06:00 O2 Sat by Pulse Oximetry (%) 97 10/07/17 21:00 CBCD WBC 17.3 K/mm3 (4.0-10.0) H 10/08/17 06:00 RBC 3.65 M/mm3 (4.00-5.60) L 10/08/17 06:00 Hgb 11.5 GM/dL (11.7-16.9) L 10/08/17 06:00 Hct 34.3 % (35.4-49) L 10/08/17 06:00 MCV 94.0 fl (80-96) 10/08/17 06:00 MCHC 33.5 g/dl (32.0-35.9) 10/08/17 06:00 RDW 13.4 % (11.9-15.9) 10/08/17 06:00 Plt Count 274 K/MM3 (134-434) 10/08/17 06:00 MPV 8.9 fl (7.5-11.1) 10/08/17 06:00 CMP Sodium 140 mmol/L (136-145) 10/07/17 06:00 Potassium 4.0 mmol/L (3.5-5.1) 10/07/17 06:00 Chloride 107 mmol/L (98-107) 10/07/17 06:00 Carbon Dioxide 25 mmol/L (21-32) 10/07/17 06:00 Anion Gap 8 (8-16) 10/07/17 06:00 BUN 12 mg/dL (7-18) D 10/07/17 06:00 Creatinine 1.3 mg/dL (0.7-1.3) 10/07/17 06:00 Creat Clearance w eGFR 53.82 (>60) 10/07/17 06:00 Random Glucose 84 mg/dL (74-106) 10/07/17 06:00 Calcium 8.0 mg/dL (8.5-10.1) L 10/07/17 06:00 Total Bilirubin 0.3 mg/dL (0.2-1.0) D 10/07/17 06:00 AST 16 U/L (15-37) 10/07/17 06:00 ALT 17 U/L (12-78) 10/07/17 06:00 Alkaline Phosphatase 78 U/L (45-117) D 10/07/17 06:00 Total Protein 5.9 g/dl (6.4-8.2) L D 10/07/17 06:00 Albumin 2.6 g/dl (3.4-5.0) L D 10/07/17 06:00 Current Medications Generic Name Dose Route Start Last Admin Trade Name Freq PRN Reason Stop Dose Admin Acetaminophen 650 mg 10/06/17 15:37 10/08/17 00:00 Tylenol - PO 650 mg Q6H PRN Administration FEVER OR PAIN Doxycycline Hyclate 100 mg 10/06/17 10:00 10/07/17 17:34 Vibramycin - PO 100 mg BID@1000,1800 [facility] Administration Heparin Sodium (Porcine) 5,000 unit 10/06/17 06:00 10/08/17 05:50 Heparin - SQ 5,000 unit TID KADI Administration Sodium Chloride 1,000 mls @ 83 mls/hr 10/06/17 11:00 10/07/17 11:00 Normal Saline - IV Not Given ASDIR [facility] Ertapenem 1 gm/ Sodium 50 mls @ 100 mls/hr 10/07/17 17:00 10/07/17 17:46 Chloride IVPB 100 mls/hr DAILY KADI Administration Protocol Oxycodone HCl 5 mg 10/07/17 17:30 10/08/17 00:00 Roxicodone - PO 5 mg Q6H PRN Administration PAIN Tamsulosin HCl 0.4 mg 10/06/17 08:30 10/07/17 10:59 Flomax - PO 0.4 mg DAILY@0830 KADI Administration Home Medications Medication Instructions Recorded Tamsulosin HCl [Flomax] 0.4 mg PO BID 10/05/17 Candesartan Cilexetil 16 mg PO DAILY 10/06/17 PE: per resident's note ASSESSMENT AND PLAN: 77 y/o man with h/o HTN and BPH , who presented with scrotal pain and fever and was found to have Right epidimyorchitis # s/p Acute sepsis due to epididymoorchitis . positive for ESBL in the urine on Ertapenem as per ID. Swelling improving but continues to have pain. # Urinary retention : cont wood and Flomax DVT px : heparin
[2017-10-08] MEDS ORDERED: PT OWN MED DRAWER 7, Y5N ONE (09:09)
[2017-10-08] MEDS: DOXYCYCLINE HYCLATE 100 MG CAPSULE PO SCH ×2 (09:17→17:56)
[2017-10-08] MEDS: oxyCODONE HCL 5 MG TABLET PO PRN ×4 (09:17→21:55)
[2017-10-08] MEDS: ERTAPENEM SODIUM 1 GM in SODIUM CHLORIDE 50 ML IVPB SCH (09:18)
[2017-10-08] MEDS: TAMSULOSIN HCL 0.4 MG CAP.ER.24H (FP) PO SCH (09:18)
[2017-10-08] MEDS: SODIUM CHLORIDE 1,000 ML IV SCH ×2 (10:47→15:50)
--- NOTE | 2017-10-08 12:55 | PN ---
Physical Exam: SUBJECTIVE: Patient seen and examined. Pt continues to c/o Right testicular pain. Pt denies chest pain, abdominal pain, sob, fever, chills. No events overnight. OBJECTIVE: Vital Signs Period Temp Pulse Resp BP Sys/Truong Pulse Ox Last 24 Hr 97.8 F-99 F 56-60 18-20 130-140/54-65 97-97 GENERAL: AAOx3, NAD. LUNGS: Breath sounds equal, clear to auscultation bilaterally, no wheezes, no crackles, no accessory muscle use. HEART: Regular rate and rhythm, S1, S2 without murmur, rub or gallop. ABDOMEN: Soft, nontender, nondistended. EXTREMITIES: Warm, well-perfused, no edema. : Right hemiscrotum with erythema. Right testicle and epididymis are enlarged and tender to palpation, slightly improved as compared to yesterday. PSYCH: Normal mood, normal affect. SKIN: Warm, dry, normal turgor, no rashes or lesions noted Laboratory Results - last 24 hr 10/05/17 10/08/17 10/08/17 21:45 06:00 06:00 WBC 17.3 H RBC 3.65 L Hgb 11.5 L Hct 34.3 L MCV 94.0 MCH 31.5 MCHC 33.5 RDW 13.4 Plt Count 274 MPV 8.9 Hemoglobin A1c % 5.7 C.trachomatis Ampl DNA Negative N. gonorrhoeae (ADRIANA) Negative Active Medications Generic Name Dose Route Start Last Admin Trade Name Freq PRN Reason Stop Dose Admin Acetaminophen 650 mg 10/06/17 15:37 10/08/17 00:00 Tylenol - PO 650 mg Q6H PRN Administration FEVER OR PAIN Doxycycline Hyclate 100 mg 10/06/17 10:00 10/08/17 09:17 Vibramycin - PO 100 mg BID@1000,1800 [facility]I Administration Heparin Sodium (Porcine) 5,000 unit 10/06/17 06:00 10/08/17 05:50 Heparin - SQ 5,000 unit TID KADI Administration Sodium Chloride 1,000 mls @ 83 mls/hr 10/06/17 11:00 10/07/17 11:00 Normal Saline - IV Not Given ASDIR KADI Ertapenem 1 gm/ Sodium 50 mls @ 100 mls/hr 10/07/17 17:00 10/08/17 09:18 Chloride IVPB 100 mls/hr DAILY KADI Administration Protocol Oxycodone HCl 5 mg 10/07/17 17:30 10/08/17 09:17 Roxicodone - PO 5 mg Q6H PRN Administration PAIN Tamsulosin HCl 0.4 mg 10/06/17 08:30 10/08/17 09:18 Flomax - PO 0.4 mg DAILY@0830 KADI Administration ASSESSMENT/PLAN: 77yo M with PMH of htn and BPH, presenting with scrotal pain and fever, found to have R epididymo-orchitis. # sepsis 2/2 epididymoorchitis - leukocytosis improved from yesterday - Day 4 of Doxycycline, now po - Day 2 of IV Ertapenem - repeat blood cultures 10/06/17 (-) 24 hrs - urine culture (+) for ESBL - IVFs - pain management with Oxycodone prn and Tylenol prn # urinary retention - continue wood - continue Flomax # FEN - Fluids: NS @ 83 ml/hr - Electrolytes: wnl, continue to monitor - Nutrition: low sodium diet # DVT prophylaxis - Heparin TID Visit type - Emergency Visit Emergency Visit: Yes ED Registration Date: 10/06/17 Care time: The patient presented to the Emergency Department on the above date and was hospitalized for further evaluation of their emergent condition. - New Patient This patient is new to me today: No - Critical Care Critical Care patient: No
--- NOTE | 2017-10-08 15:08 | PN ---
Progress Note (short form) - Note Progress Note: still with testicular pain but a bit less then yesterday now with wood Vital Signs Period Temp Pulse Resp BP Sys/Truong Pulse Ox Last 24 Hr 97.8 F-99 F 56-66 18-20 126-149/54-65 97-97 cor-rrr lungs clear abd soft,nt testicular swelling unchanged ext no edema +wood CBC, BMP 10/08/17 06:00 10/07/17 06:00 Microbiology 10/06/17 16:30 Urine - Urine Wood Urine Culture - Final NO GROWTH OBTAINED 10/05/17 21:45 Urine - Urine Clean Catch Urine Culture - Final Escherichia Coli Esbl [employer] 10/05/17 22:45 Blood - Peripheral Venous Blood Culture - Preliminary NO GROWTH OBTAINED AFTER 48 HOURS, INCUBATION TO CONTINUE FOR 3 DAYS. 10/05/17 22:45 Blood - Peripheral Venous Blood Culture - Preliminary NO GROWTH OBTAINED AFTER 48 HOURS, INCUBATION TO CONTINUE FOR 3 DAYS. 10/06/17 18:00 Blood - Peripheral Venous Blood Culture - Preliminary NO GROWTH OBTAINED AFTER 24 HOURS, INCUBATION TO CONTINUE FOR 4 DAYS. 10/06/17 18:00 Blood - Peripheral Venous Blood Culture - Preliminary NO GROWTH OBTAINED AFTER 24 HOURS, INCUBATION TO CONTINUE FOR 4 DAYS. 10/06/17 00:35 Nasopharyngeal Swab Influenza Types A,B Antigen (TAI) - Final 10/06/17 00:35 Nasopharyngeal Swab - Final hiv negative a/p right epididymo-orchitis- UTI=ecoli esbl- day #2 ertapenem-suspect will require picc line and iv antibioitcs -ertapenem ?d/c Friday if he continues to improve possible STD ADRIANA GC/Chlamydia po doxycycline d/w son at bedside Problem List - Problems (1) Epididymitis Code(s): N45.1 - EPIDIDYMITIS (2) UTI (urinary tract infection) Code(s): N39.0 - URINARY TRACT INFECTION, SITE NOT SPECIFIED (3) OBI (acute kidney injury) Code(s): N17.9 - ACUTE KIDNEY FAILURE, UNSPECIFIED
[2017-10-09] MEDS: SODIUM CHLORIDE 1,000 ML IV SCH ×3 (03:00→18:06)
[2017-10-09] MEDS: HEPARIN NA (PORCINE) 5,000 UNITS/ML 1ML VIAL SQ SCH ×3 (05:39→21:00)
[2017-10-09 07:01] LABS: HEMATOCRIT 35.5 % (35.4-49); HEMOGLOBIN 11.9 GM/dL (11.7-16.9); MCH 31.6 pg (25.7-33.7); MCHC 33.7 g/dl (32.0-35.9); MEAN CELL VOLUME 93.7 fl (80-96); PLATELET COUNT 308 K/MM3 (134-434); RBC 3.79 M/mm3 (4.00-5.60); RDW 13.5 % (11.9-15.9); WHITE BLOOD COUNT 13.7 K/mm3 (4.0-10.0)
[2017-10-09] MEDS ORDERED: PT OWN MED DRAWER 7, Y5N ONE (08:55)
[2017-10-09] MEDS: oxyCODONE HCL 5 MG TABLET PO PRN ×2 (09:04→14:33)
[2017-10-09] MEDS: DOXYCYCLINE HYCLATE 100 MG CAPSULE PO SCH (09:04)
[2017-10-09] MEDS: TAMSULOSIN HCL 0.4 MG CAP.ER.24H (FP) PO SCH (09:04)
[2017-10-09] MEDS: ERTAPENEM SODIUM 1 GM in SODIUM CHLORIDE 50 ML IVPB SCH (09:39)
[2017-10-09] MEDS ORDERED: POLYETHYLENE GLYCOL 3350 119 GM BTL PO SCH (12:00)
[2017-10-09] MEDS: ACETAMINOPHEN 325 MG TABLET (FP) PO PRN (12:05)
--- NOTE | 2017-10-09 13:59 | PN ---
Teaching Attending Note Name of Resident: Libseth Shen ATTENDING PHYSICIAN STATEMENT I saw and evaluated the patient. I reviewed the resident's note and discussed the case with the resident. I agree with the resident's findings and plan as documented. SUBJECTIVE: Patient is doing better today with no acute distress. Continues to have pain. OBJECTIVE: Vital Signs Temperature 98 F 10/09/17 08:51 Pulse Rate 60 10/09/17 08:51 Respiratory Rate 18 10/09/17 09:00 Blood Pressure 146/62 10/09/17 08:51 O2 Sat by Pulse Oximetry (%) 96 10/09/17 09:00 CBCD WBC 13.7 K/mm3 (4.0-10.0) H 10/09/17 06:00 RBC 3.79 M/mm3 (4.00-5.60) L 10/09/17 06:00 Hgb 11.9 GM/dL (11.7-16.9) 10/09/17 06:00 Hct 35.5 % (35.4-49) 10/09/17 06:00 MCV 93.7 fl (80-96) 10/09/17 06:00 MCHC 33.7 g/dl (32.0-35.9) 10/09/17 06:00 RDW 13.5 % (11.9-15.9) 10/09/17 06:00 Plt Count 308 K/MM3 (134-434) 10/09/17 06:00 MPV 9.0 fl (7.5-11.1) 10/09/17 06:00 CMP Sodium 140 mmol/L (136-145) 10/07/17 06:00 Potassium 4.0 mmol/L (3.5-5.1) 10/07/17 06:00 Chloride 107 mmol/L (98-107) 10/07/17 06:00 Carbon Dioxide 25 mmol/L (21-32) 10/07/17 06:00 Anion Gap 8 (8-16) 10/07/17 06:00 BUN 12 mg/dL (7-18) D 10/07/17 06:00 Creatinine 1.3 mg/dL (0.7-1.3) 10/07/17 06:00 Creat Clearance w eGFR 53.82 (>60) 10/07/17 06:00 Random Glucose 84 mg/dL (74-106) 10/07/17 06:00 Calcium 8.0 mg/dL (8.5-10.1) L 10/07/17 06:00 Total Bilirubin 0.3 mg/dL (0.2-1.0) D 10/07/17 06:00 AST 16 U/L (15-37) 10/07/17 06:00 ALT 17 U/L (12-78) 10/07/17 06:00 Alkaline Phosphatase 78 U/L (45-117) D 10/07/17 06:00 Total Protein 5.9 g/dl (6.4-8.2) L D 10/07/17 06:00 Albumin 2.6 g/dl (3.4-5.0) L D 10/07/17 06:00 Current Medications Generic Name Dose Route Start Last Admin Trade Name Freq PRN Reason Stop Dose Admin Acetaminophen 650 mg 10/06/17 15:37 10/09/17 12:05 Tylenol - PO 650 mg Q6H PRN Administration FEVER OR PAIN Doxycycline Hyclate 100 mg 10/06/17 10:00 10/09/17 09:04 Vibramycin - PO 100 mg BID@1000,1800 KADI Administration Heparin Sodium (Porcine) 5,000 unit 10/06/17 06:00 10/09/17 05:39 Heparin - SQ 5,000 unit TID KADI Administration Sodium Chloride 1,000 mls @ 83 mls/hr 10/06/17 11:00 10/09/17 13:21 Normal Saline - IV Not Given ASDIR [facility] Ertapenem 1 gm/ Sodium 50 mls @ 100 mls/hr 10/07/17 17:00 10/09/17 09:39 Chloride IVPB 100 mls/hr DAILY KADI Administration Protocol Oxycodone HCl 5 mg 10/07/17 17:30 10/09/17 09:04 Roxicodone - PO 5 mg Q6H PRN Administration PAIN Polyethylene Glycol 17 gm 10/09/17 12:00 10/09/17 11:59 Miralax (For Daily Use) - PO 17 gm DAILY KADI Administration Tamsulosin HCl 0.4 mg 10/06/17 08:30 10/09/17 09:04 Flomax - PO 0.4 mg DAILY@0830 KADI Administration Home Medications Medication Instructions Recorded Tamsulosin HCl [Flomax] 0.4 mg PO BID 10/05/17 Candesartan Cilexetil 16 mg PO DAILY 10/06/17 PE: per resident's note ASSESSMENT AND PLAN: 77 y/o man with h/o HTN and BPH , who presented with scrotal pain and fever and was found to have Right epidimyorchitis # s/p Acute sepsis due to epididymoorchitis . positive for ESBL in the urine on Ertapenem continue as per ID. Swelling improving but continues to have tenderness but less than before. # Urinary retention : cont wood and Flomax will increase the dose to 2x per day. DVT px : heparin
--- NOTE | 2017-10-09 15:39 | PN ---
Progress Note (short form) - Note Progress Note: less testicular pain no fever constipation Vital Signs Period Temp Pulse Resp BP Sys/Truong Pulse Ox Last 24 Hr 97.9 F-99.2 F 52-62 18-18 135-159/57-87 96-96 cor-rrr lungs clear abd soft, +bs nt, slightly distended +right testicular pain and swelling (reduced) ext no edema CBC, BMP 10/09/17 06:00 10/07/17 06:00 Laboratory Tests 10/05/17 10/07/17 21:45 06:00 C.trachomatis Ampl DNA Negative HIV 1&2 Antibody Screen Negative HIV P24 Antigen Negative N. gonorrhoeae (ADRIANA) Negative a/p right epididymo-orchitis- UTI=ecoli esbl- day #3 ertapenem-needs picc line and iv ertapenem as outpt d/c doxycycline treat constipation urology f/u, ?d/c wood after constipation improves d/w son at bedside Problem List - Problems (1) Epididymitis Code(s): N45.1 - EPIDIDYMITIS (2) UTI (urinary tract infection) Code(s): N39.0 - URINARY TRACT INFECTION, SITE NOT SPECIFIED (3) OBI (acute kidney injury) Code(s): N17.9 - ACUTE KIDNEY FAILURE, UNSPECIFIED
[2017-10-09] MEDS ORDERED: POLYETHYLENE GLYCOL 3350 119 GM BTL PO ONE (16:41)
[2017-10-09] MEDS ORDERED: SENNOSIDES 8.6MG TABLET (FP) PO PRN (19:21)
--- NOTE | 2017-10-09 20:29 | PN ---
Physical Exam: SUBJECTIVE: Patient seen and examined. Pt c/o constipation. Pt continues to c/ o Right testicular pain, which is controlled with his pain medication. Pt wants his wood out, but understands he still needs it. Pt denies chest pain, abdominal pain, fever, chills. No events overnight. OBJECTIVE: Vital Signs Period Temp Pulse Resp BP Sys/Truong Pulse Ox Last 24 Hr 97.9 F-99.2 F 52-61 18-18 144-159/62-87 96-96 GENERAL: AAOx3, NAD. LUNGS: Breath sounds equal, clear to auscultation bilaterally, no wheezes, no crackles, no accessory muscle use. HEART: Regular rate and rhythm, S1, S2 without murmur, rub or gallop. ABDOMEN: Soft, nontender, nondistended. EXTREMITIES: Warm, well-perfused, no edema. : Right hemiscrotum with erythema. Right testicle and epididymis are enlarged and tender to palpation, slightly improved as compared to yesterday. PSYCH: Normal mood, normal affect. SKIN: Warm, dry, normal turgor, no rashes or lesions noted Laboratory Results - last 24 hr 10/09/17 06:00 WBC 13.7 H RBC 3.79 L Hgb 11.9 Hct 35.5 MCV 93.7 MCH 31.6 MCHC 33.7 RDW 13.5 Plt Count 308 MPV 9.0 Active Medications Generic Name Dose Route Start Last Admin Trade Name Freq PRN Reason Stop Dose Admin Acetaminophen 650 mg 10/06/17 15:37 10/09/17 12:05 Tylenol - PO 650 mg Q6H PRN Administration FEVER OR PAIN Heparin Sodium (Porcine) 5,000 unit 10/06/17 06:00 10/09/17 15:46 Heparin - SQ 5,000 unit TID KADI Administration Sodium Chloride 1,000 mls @ 83 mls/hr 10/06/17 11:00 10/09/17 18:06 Normal Saline - IV 83 mls/hr ASDIR KADI Administration Ertapenem 1 gm/ Sodium 50 mls @ 100 mls/hr 10/07/17 17:00 10/09/17 09:39 Chloride IVPB 100 mls/hr DAILY KADI Administration Protocol Losartan Potassium 50 mg 10/09/17 19:30 Cozaar - PO DAILY KADI Oxycodone HCl 5 mg 10/07/17 17:30 10/09/17 14:33 Roxicodone - PO 5 mg Q6H PRN Administration PAIN Polyethylene Glycol 17 gm 10/09/17 22:00 Miralax (For Daily Use) - PO BID KADI Senna 2 tab 10/09/17 19:21 Senna - PO HS PRN CONSTIPATION Tamsulosin HCl 0.4 mg 10/06/17 08:30 10/09/17 09:04 Flomax - PO 0.4 mg DAILY@0830 KADI Administration ASSESSMENT/PLAN: 77yo M with PMH of htn and BPH, presenting with scrotal pain and fever, found to have R epididymo-orchitis. # sepsis 2/2 epididymoorchitis - leukocytosis improved from yesterday - Doxycycline D/Cong - Day 3 of IV Ertapenem - ID recs appreciated: pt will require a picc line and IV ertapenem as outpt - repeat blood cultures 10/06/17 (-) 72 hrs - repeat urine culture 10/06/17 (-) - IVFs - pain management with Oxycodone prn and Tylenol prn # htn - Losartan # constipation - Miralax BID and Senna added - last bowel movement on 10/06/17 # urinary retention - continue wood - continue Flomax # FEN - Fluids: NS @ 83 ml/hr - Electrolytes: wnl, continue to monitor - Nutrition: low sodium diet # DVT prophylaxis - Heparin TID Visit type - Emergency Visit Emergency Visit: Yes ED Registration Date: 10/06/17 Care time: The patient presented to the Emergency Department on the above date and was hospitalized for further evaluation of their emergent condition. - New Patient This patient is new to me today: No - Critical Care Critical Care patient: No
[2017-10-09] MEDS: LOSARTAN POTASSIUM 50 MG TABLET (FP) PO SCH (21:00)
[2017-10-09] MEDS: POLYETHYLENE GLYCOL 3350 119 GM BTL PO SCH (21:04)
[2017-10-10] MEDS: oxyCODONE HCL 5 MG TABLET PO PRN ×2 (00:37→08:33)
[2017-10-10] MEDS: SODIUM CHLORIDE 1,000 ML IV SCH ×2 (05:00→12:22)
[2017-10-10] MEDS: HEPARIN NA (PORCINE) 5,000 UNITS/ML 1ML VIAL SQ SCH ×2 (05:46→14:05)
[2017-10-10 07:33] LABS: HEMATOCRIT 35.6 % (35.4-49); HEMOGLOBIN 12.3 GM/dL (11.7-16.9); MCH 32.1 pg (25.7-33.7); MCHC 34.7 g/dl (32.0-35.9); MEAN CELL VOLUME 92.5 fl (80-96); MEAN PLT VOLUME 8.8 fl (7.5-11.1); PLATELET COUNT 325 K/MM3 (134-434); RBC 3.85 M/mm3 (4.00-5.60); RDW 13.4 % (11.9-15.9); WHITE BLOOD COUNT 12.1 K/mm3 (4.0-10.0)
[2017-10-10] MEDS: TAMSULOSIN HCL 0.4 MG CAP.ER.24H (FP) PO SCH (08:33)
[2017-10-10] MEDS ORDERED: PICC LINE 8 ML FLUSH PROTOCOL IVPUSH PRN (08:40)
[2017-10-10] MEDS ORDERED: DOCUSATE SODIUM 100 MG CAPSULE (FP) PO ONE (09:15)
[2017-10-10] MEDS: LOSARTAN POTASSIUM 50 MG TABLET (FP) PO SCH (09:17)
[2017-10-10] MEDS: POLYETHYLENE GLYCOL 3350 119 GM BTL PO SCH (09:17)
[2017-10-10] MEDS: ERTAPENEM SODIUM 1 GM in SODIUM CHLORIDE 50 ML IVPB SCH (10:55)
--- NOTE | 2017-10-10 10:58 | PN ---
Progress Note (short form) - Note Progress Note: less testicular pain no fever constipation no abdominal pain still with wood just had picc line placed Vital Signs Period Temp Pulse Resp BP Sys/Truong Pulse Ox Last 24 Hr 98.0 F-98.5 F 52-59 18-18 151-159/61-72 99 cor-rrr lungs decreased bs at bases abd soft,nt +bs ext no edema testicular swelling improved, less pain but woven blind loom tender +wood CBC, BMP 10/10/17 06:25 10/07/17 06:00 Microbiology 10/05/17 22:45 Blood - Peripheral Venous Blood Culture - Preliminary NO GROWTH OBTAINED AFTER 96 HOURS, INCUBATION TO CONTINUE FOR 1 DAYS. 10/05/17 22:45 Blood - Peripheral Venous Blood Culture - Preliminary NO GROWTH OBTAINED AFTER 96 HOURS, INCUBATION TO CONTINUE FOR 1 DAYS. 10/06/17 18:00 Blood - Peripheral Venous Blood Culture - Preliminary NO GROWTH OBTAINED AFTER 72 HOURS, INCUBATION TO CONTINUE FOR 2 DAYS. 10/06/17 18:00 Blood - Peripheral Venous Blood Culture - Preliminary NO GROWTH OBTAINED AFTER 72 HOURS, INCUBATION TO CONTINUE FOR 2 DAYS. 10/06/17 16:30 Urine - Urine Wood Urine Culture - Final NO GROWTH OBTAINED 10/05/17 21:45 Urine - Urine Clean Catch Urine Culture - Final Escherichia Coli Esbl [employer] Program Director 10/06/17 00:35 Nasopharyngeal Swab Influenza Types A,B Antigen (TAI) - Final 10/06/17 00:35 Nasopharyngeal Swab - Final a/p right epididymo-orchitis- UTI=ecoli esbl- day #4 ertapenem-needs picc line and iv ertapenem as outpt should complete 14 days iv ertapenem should be seen by his PMD before completion of the iv antibiotics treat constipation urology f/u, ?d/c wood after constipation improves d/w son at bedside d/w resident please call back if needed Problem List - Problems (1) Epididymitis Code(s): N45.1 - EPIDIDYMITIS (2) UTI (urinary tract infection) Code(s): N39.0 - URINARY TRACT INFECTION, SITE NOT SPECIFIED (3) OBI (acute kidney injury) Code(s): N17.9 - ACUTE KIDNEY FAILURE, UNSPECIFIED
[2017-10-10] MEDS ORDERED: LACTULOSE 20 GM/30 ML UDC (FOR ORAL USE ONLY) PO ONE (12:00)
--- NOTE | 2017-10-10 14:00 | PN ---
Teaching Attending Note Name of Resident: Lisbeth Shen ATTENDING PHYSICIAN STATEMENT I saw and evaluated the patient. I reviewed the resident's note and discussed the case with the resident. I agree with the resident's findings and plan as documented. SUBJECTIVE: Patient is doing better, still continues to have pain but less than before. No fever or chills. OBJECTIVE: Vital Signs Temperature 98.5 F 10/10/17 09:00 Pulse Rate 59 L 10/10/17 09:00 Respiratory Rate 18 10/10/17 09:00 Blood Pressure 151/66 10/10/17 09:00 O2 Sat by Pulse Oximetry (%) 99 10/10/17 09:00 CBCD WBC 12.1 K/mm3 (4.0-10.0) H 10/10/17 06:25 RBC 3.85 M/mm3 (4.00-5.60) L 10/10/17 06:25 Hgb 12.3 GM/dL (11.7-16.9) 10/10/17 06:25 Hct 35.6 % (35.4-49) 10/10/17 06:25 MCV 92.5 fl (80-96) 10/10/17 06:25 MCHC 34.7 g/dl (32.0-35.9) 10/10/17 06:25 RDW 13.4 % (11.9-15.9) 10/10/17 06:25 Plt Count 325 K/MM3 (134-434) 10/10/17 06:25 MPV 8.8 fl (7.5-11.1) 10/10/17 06:25 CMP Sodium 140 mmol/L (136-145) 10/07/17 06:00 Potassium 4.0 mmol/L (3.5-5.1) 10/07/17 06:00 Chloride 107 mmol/L (98-107) 10/07/17 06:00 Carbon Dioxide 25 mmol/L (21-32) 10/07/17 06:00 Anion Gap 8 (8-16) 10/07/17 06:00 BUN 12 mg/dL (7-18) D 10/07/17 06:00 Creatinine 1.3 mg/dL (0.7-1.3) 10/07/17 06:00 Creat Clearance w eGFR 53.82 (>60) 10/07/17 06:00 Random Glucose 84 mg/dL (74-106) 10/07/17 06:00 Calcium 8.0 mg/dL (8.5-10.1) L 10/07/17 06:00 Total Bilirubin 0.3 mg/dL (0.2-1.0) D 10/07/17 06:00 AST 16 U/L (15-37) 10/07/17 06:00 ALT 17 U/L (12-78) 10/07/17 06:00 Alkaline Phosphatase 78 U/L (45-117) D 10/07/17 06:00 Total Protein 5.9 g/dl (6.4-8.2) L D 10/07/17 06:00 Albumin 2.6 g/dl (3.4-5.0) L D 10/07/17 06:00 Current Medications Generic Name Dose Route Start Last Admin Trade Name Freq PRN Reason Stop Dose Admin Acetaminophen 650 mg 10/06/17 15:37 10/09/17 12:05 Tylenol - PO 650 mg Q6H PRN Administration FEVER OR PAIN Heparin Sodium (Porcine) 5,000 unit 10/06/17 06:00 10/10/17 05:46 Heparin - SQ 5,000 unit TID KADI Administration IV Flush 8 ml 10/10/17 08:40 Picc Line Flush IVPUSH PRN PRN Protocol Sodium Chloride 1,000 mls @ 83 mls/hr 10/06/17 11:00 10/10/17 12:22 Normal Saline - IV Not Given ASDIR KADI Ertapenem 1 gm/ Sodium 50 mls @ 100 mls/hr 10/07/17 17:00 10/10/17 10:55 Chloride IVPB 100 mls/hr DAILY KADI Administration Protocol Losartan Potassium 50 mg 10/09/17 19:30 10/10/17 09:17 Cozaar - PO 50 mg DAILY KADI Administration Oxycodone HCl 5 mg 10/07/17 17:30 10/10/17 08:33 Roxicodone - PO 5 mg Q6H PRN Administration PAIN Polyethylene Glycol 17 gm 10/09/17 22:00 10/10/17 09:17 Miralax (For Daily Use) - PO 17 gm BID KADI Administration Senna 2 tab 10/09/17 19:21 10/09/17 22:06 Senna - PO 2 tab HS PRN Administration CONSTIPATION Tamsulosin HCl 0.4 mg 10/06/17 08:30 10/10/17 08:33 Flomax - PO 0.4 mg DAILY@0830 KADI Administration Home Medications Medication Instructions Recorded Tamsulosin HCl [Flomax] 0.4 mg PO BID 10/05/17 Candesartan Cilexetil 16 mg PO DAILY 10/06/17 PE: per resident's note : decreased swelling by 50%, bone char kiln tender but less than before. ASSESSMENT AND PLAN: 77 y/o man with h/o HTN and BPH , who presented with scrotal pain and fever and was found to have Right epidimyorchitis # s/p Acute sepsis due to epididymoorchitis . positive for ESBL in the urine on Ertapenem as per ID. Swelling improving but continues to have pain. Patient was given RX for Ertapenem by ID to continue as an outpatient.for 8 more days. Discussed with ID, patient will follow up with his enameler, an appointment was made for the patient and also Uroligical appointment was made for next week. Dates were given to the patient. # Urinary retention : fokley was removed after patient had a bowel movement, also given lactulose , patient was ordered Lactulose since was constipated x 1, patient had a BM and was able to void without any issues. Patient was discharged home with IV infusion , PICC line was inserted before discharge . Flomax was increased the dose. Patient is being discharged today.
[2017-10-10] MEDS ORDERED: TAMSULOSIN HCL 0.4 MG CAP.ER.24H (FP) PO ONE (15:00)
[2017-10-10] MEDS: ACETAMINOPHEN 325 MG TABLET (FP) PO PRN (15:28)
[2017-10-10 17:32] VITALS: BP 163/75; PULSE 57; TEMP 97.9
--- NOTE | 2017-10-10 23:09 | DS ---
Physical Exam: SUBJECTIVE: Patient seen and examined. Pt c/o constipation, relieved with Lactulose today. Pt's wood D/Cong today and pt passed voiding trial. Pt continues to c/o Right testicular pain, which is controlled with his pain medication. No fever or chills. No events overnight. OBJECTIVE: Vital Signs Period Temp Pulse Resp BP Sys/Truong Pulse Ox Last 24 Hr 97.9 F-98.6 F 54-59 18-20 146-163/61-75 99 PHYSICAL EXAM GENERAL: AAOx3, NAD. LUNGS: Breath sounds equal, clear to auscultation bilaterally, no wheezes, no crackles, no accessory muscle use. HEART: Regular rate and rhythm, S1, S2 without murmur, rub or gallop. ABDOMEN: Soft, nontender, nondistended. EXTREMITIES: Warm, well-perfused, no edema. : Right hemiscrotum with erythema. Right testicle and epididymis are enlarged and tender to palpation, but improved. PSYCH: Normal mood, normal affect. SKIN: Warm, dry, normal turgor, no rashes or lesions noted LABS Laboratory Results - last 24 hr 10/10/17 06:25 WBC 12.1 H RBC 3.85 L Hgb 12.3 Hct 35.6 MCV 92.5 MCH 32.1 MCHC 34.7 RDW 13.4 Plt Count 325 MPV 8.8 HOSPITAL COURSE: Date of Admission:10/06/17 Date of Discharge: 10/10/17 77yo M with PMH of htn and BPH, presenting with scrotal pain and fever, found to have R epididymo-orchitis. Pt treated with IV antibiotics and sent home with a PICC to complete the course. Pt experienced constipation during this hospitalization which was relieved with a bowel regimen including Miralax, Senna , Colace, and Lactulose. 10/05/17 urine culture (+) for ESBL 10/05/17 blood cultures (-) x 5 days 10/06/17 Influenza A&B (-) 10/06/17 repeat urine culture (-) 10/06/17 repeat blood culture (-) x 96 hrs 10/05/17 Scrotum US -> enlarged Right epididymis with hypervascularity in the epididymis and testicle, suggestive of epididymo-orchitis. Small brianne hydrocele noted. 10/05/17 Ab/Pel CT -> no urinary tract calculi or obstructive uropathy. Large Left renal cyst. Prostate enlarged. No acute pathology. 10/06/17 CXR -> no acute pathology. Pt stable for discharge home. Minutes to complete discharge: 55 Discharge Summary Reason For Visit: URINARY TRACT INFECTION, COUGH, EPIDIDYMITIS Condition: Improved - Instructions Diet, Activity, Other Instructions: You were treated for epididymo-orchitis (infection near the Right testicle). You must complete a course of IV antibiotics (10 days more) to fully treat this condition. You were sent home with a PICC (Peripherally Inserted Central Catheter) through which you can receive the rest of the IV antibiotics you need. Keep the catheter clean and dry. Please continue your home medications as prescribed. Please continue to eat a low sodium diet and resume physical activity as tolerated. A follow-up appointment with your Urologist (Dr. Joshi) has been scheduled for you on 10/16/17 at 2:45pm. A follow-up appointment with your Primary Care Physician (Dr. Randolph) has been scheduled for Friday10/18/17 at 10am. Please discuss with Dr. Randolph about repeating lab work to monitor your electrolytes, kidney function, and white blood cell count. After you complete your course of IV antibiotics, follow-up with Dr. Batres ( contact information attached) to get PICC line removed. Please return to the hospital immediately if you experience persistent or increased testicular pain, fevers, discharge from the PICC, redness/swelling around the PICC, chest pain, difficulty breathing, if you do no urinate for an extended period of time, or for any medical emergency. Referrals: Jean Carlos Joshi MD [Staff Physician] - 10/16/17 2:45 pm Jesús Batres MD [Staff Physician] - Mati Randolph MD [Primary Care Provider] - 10/18/17 10:00 am Disposition: HOME - Home Medications Comprehensive Discharge Medication List: Ambulatory Orders Tamsulosin HCl [Flomax -] 0.4 mg PO BID 10/05/17 Candesartan Cilexetil 16 mg PO DAILY 10/06/17 Ertapenem Sodium [Invanz -] 1 gm IVPB DAILY vial 10/10/17 Miscellaneous Medical Supply [Outpatient Order] 1 each ASDIR #1 misc This patient is new to me today: No Emergency Visit: Yes ED Registration Date: 10/06/17 Care time: The patient presented to the Emergency Department on the above date and was hospitalized for further evaluation of their emergent condition. Critical Care patient: No - Discharge Referral Referred to [facility] Med [facility] No
== END 2017-10-10 18:33 | disposition home or self-care (01) | DRG 872 ==
LOC: JER 19:36 → JERBED 10-06 00:41 → J7W 10-06 02:26 → OBSVTOIN 10-06 12:41 → J7W 10-08 10:43
PROVIDERS: ADMIT Internal Medicine; ATTEND Internal Medicine
PROC: 02HV33Z Insertion of Infusion Device into Superior Vena Cava, Percutaneous Approach (ICD-10-PCS; principal; 2017-10-10)
PROC: B518ZZA Fluoroscopy of Superior Vena Cava, Guidance (ICD-10-PCS; 2017-10-10)
DX: A41.9 Sepsis, unspecified organism (principal); N39.0 Urinary tract infection, site not specified; N17.9 Acute kidney failure, unspecified; E87.1 Hypo-osmolality and hyponatremia; N45.3 Epididymo-orchitis; R33.9 Retention of urine, unspecified; B96.20 Unspecified Escherichia coli [E. coli] as the cause of diseases classified elsewhere; K59.00 Constipation, unspecified; I10 Essential (primary) hypertension; N40.0 Benign prostatic hyperplasia without lower urinary tract symptoms; N28.1 Cyst of kidney, acquired; N43.3 Hydrocele, unspecified
CPT/HCPCS: 36415; 36569; 71020-TC; 74176; 76870-TC; 77001-TC; 80048; 80053; 81003; 81015; 82436; 83036; 83605; 83735; 84133; 84300; 85025; 85027; 85610; 86850; 86900; 86901; 87040; 87086; 87186; 87389; 87491; 87591; 87804; 90670; 90688; 93005; 93010; 99284-25; 99285-25; C1751; G0008; G0009; G0378; J1644

== ENCOUNTER 2017-10-21 16:11 | Emergency (ER) | payer MEDICARE ==
--- NOTE | 2017-10-21 16:19 | PDOC ---
Rapid Medical Evaluation Time Seen by Provider: 10/21/17 16:17 Medical Evaluation: Allergies Allergy/AdvReac Type Severity Reaction Status Date / Time No Known Allergies Allergy Verified 10/05/17 19:44 10/21/17 16:17 77 year old male s/p 10 days abx for right epididymo-orchitis. States he was told by Dr. Joshi to come to ED for removal. No complaints. 10/21/17 16:20
[2017-10-21 16:21] VITALS: BP 151/71; PULSE 63; TEMP 97.3; BMI 22.8
== END 2017-10-21 18:15 | disposition home or self-care (01) ==
LOC: JER 16:11
DX: Z46.89 Encounter for fitting and adjustment of other specified devices (principal)
CPT/HCPCS: 99281-25

== ENCOUNTER 2021-05-09 09:51 | Day surgery (SDC) | payer OTHER ==
[2021-05-08 14:25] VITALS: BMI 24.2
[2021-05-09] MEDS ORDERED: PROPOFOL 20 ML ONE ×2 (12:03)
[2021-05-10 09:35] VITALS: TEMP 98.2
[2021-05-10 09:36] VITALS: BP 124/64; PULSE 72
== END 2021-05-09 13:40 | disposition home or self-care (01) ==
LOC: FASU 09:51
PROVIDERS: ATTEND Internal Medicine Gastroenterology
PROC: 0DBL8ZX Excision of Transverse Colon, Via Natural or Artificial Opening Endoscopic, Diagnostic (ICD-10-PCS; 2021-05-09)
PROC: 3E0H8KZ Introduction of Other Diagnostic Substance into Lower GI, Via Natural or Artificial Opening Endoscopic (ICD-10-PCS; 2021-05-09)
PROC: 0DBP8ZX Excision of Rectum, Via Natural or Artificial Opening Endoscopic, Diagnostic (ICD-10-PCS; principal; 2021-05-09 12:03)
DX: Z86.010 Personal history of colon polyps (principal); D12.3 Benign neoplasm of transverse colon; D12.8 Benign neoplasm of rectum; K64.1 Second degree hemorrhoids; K57.30 Diverticulosis of large intestine without perforation or abscess without bleeding

== ENCOUNTER 2021-11-12 08:38 | Day surgery (SDC) | payer OTHER ==
[2021-11-06 12:50] VITALS: BMI 24.2
[2021-11-12] MEDS ORDERED: CYCLOPENTOLATE 2% OPHTH SOLN 2 ML BOTTLE ONE (09:30)
[2021-11-12] MEDS ORDERED: TETRACAINE 0.5% OPHTH SOLN 2 ML BOTTLE ONE ×2 (09:31→12:05)
[2021-11-12 09:49] VITALS: TEMP 97.8
[2021-11-12] MEDS: TROPICAMIDE 1% OPHTH SOLN 15 ML BOTTLE ONE ×3 (09:50→10:00)
[2021-11-12] MEDS: PHENYLEPHRINE 2.5% OPHTH SOLN 15 ML BOTTLE ONE ×3 (09:50→10:00)
[2021-11-12] MEDS: CIPROFLOXACIN 0.3% EYE DROPS 5 ML BOTTLE ONE ×3 (09:50→10:00)
[2021-11-12] MEDS ORDERED: CYCLOPENTOLATE 2% OPHTH SOLN 2 ML BOTTLE OD ONE ×3 (09:50→10:00)
[2021-11-12] MEDS ORDERED: ONDANSETRON 4 MG/2 ML VIAL ONE (10:28)
[2021-11-12] MEDS ORDERED: MIDAZOLAM HCL 2 MG/2 ML SINGLE DOSE VIAL ONE (10:28)
[2021-11-12] MEDS ORDERED: TRYPAN BLUE 0.5 ML DISP.SYRIN ONE (10:43)
[2021-11-12] MEDS ORDERED: ACETYLCHOLINE 1:100 INTRA-OCUL 20 MG/2 ML KIT ONE (12:05)
[2021-11-12] MEDS ORDERED: EPI-SHUGARCAINE (EPINEPHRINE 0.025% & LIDOCAINE-PF 0.75%) 4ML ONE (12:05)
[2021-11-12] MEDS ORDERED: POVIDONE-IODINE 5% OPHTHALMIC PREP 30 ML SOLUTION ONE (12:05)
[2021-11-12 12:06] VITALS: BP 121/59; PULSE 56
== END 2021-11-12 12:30 | disposition home or self-care (01) ==
LOC: FASU 08:38
PROVIDERS: ATTEND Ophthalmology
PROC: 08RJ3JZ Replacement of Right Lens with Synthetic Substitute, Percutaneous Approach (ICD-10-PCS; principal; 2021-11-12 11:00)
DX: H25.11 Age-related nuclear cataract, right eye (principal)

== ENCOUNTER 2021-12-17 09:15 | Day surgery (SDC) | payer OTHER ==
[2021-12-13 17:14] VITALS: BMI 24.2
[2021-12-17] MEDS ORDERED: TETRACAINE 0.5% OPHTH SOLN 2 ML BOTTLE ONE (09:26)
[2021-12-17] MEDS: TROPICAMIDE 1% OPHTH SOLN 15 ML BOTTLE ONE ×3 (09:50→10:00)
[2021-12-17] MEDS: PHENYLEPHRINE 2.5% OPHTH SOLN 15 ML BOTTLE ONE ×3 (09:50→10:00)
[2021-12-17] MEDS: CYCLOPENTOLATE 2% OPHTH SOLN 2 ML BOTTLE ONE ×3 (09:50→10:00)
[2021-12-17] MEDS: CIPROFLOXACIN 0.3% EYE DROPS 5 ML BOTTLE ONE ×3 (09:50→10:00)
[2021-12-17] MEDS ORDERED: EPI-SHUGARCAINE (EPINEPHRINE 0.025% & LIDOCAINE-PF 0.75%) 4ML ONE (10:24)
[2021-12-17] MEDS ORDERED: NEO/POLYMYX B SULF/DEXAMETH OPHTHALMIC 5ML BOTTLE ONE (10:25)
[2021-12-17] MEDS ORDERED: POVIDONE-IODINE 5% OPHTHALMIC PREP 30 ML SOLUTION ONE (10:25)
[2021-12-17] MEDS ORDERED: MIDAZOLAM HCL 2 MG/2 ML SINGLE DOSE VIAL ONE (10:28)
[2021-12-17 12:16] VITALS: TEMP 97.8
[2021-12-17 12:40] VITALS: BP 139/75; PULSE 67
== END 2021-12-17 12:50 | disposition home or self-care (01) ==
LOC: FASU 09:15
PROVIDERS: ATTEND Ophthalmology
PROC: 08RJ3JZ Replacement of Right Lens with Synthetic Substitute, Percutaneous Approach (ICD-10-PCS; principal; 2021-12-17 11:30)
DX: H25.11 Age-related nuclear cataract, right eye (principal); H57.03 Miosis